=== PATIENT | female | born 1960 | race African-American/Black ===

== ENCOUNTER 2018-10-01 18:40 | Observation (INO) | payer OTHER ==
[~2018-10-01] VITALS: Ht 165.1 cm; Wt 83.0 kg
[2018-10-01] MEDS ORDERED: ONDANSETRON PF 4 MG/2 ML VIAL. IV ONE (19:30)
[2018-10-01] MEDS ORDERED: IV NORMAL SALINE 1000ML BAG 1,000 ML IV ONE (19:30)
[2018-10-01] MEDS ORDERED: fentaNYL PF VIAL 100 MCG/2 ML VIAL IV ONE (19:30)
[2018-10-01 19:55] LABS: BASO % 1 % (0-3); EOS # 0.3 x10^3/uL (0.0-0.7); EOS % 5 % (0-3); HEMATOCRIT 37.7 % (36.0-47.0); LYMPH # 1.2 x10^3/uL (1.0-4.8); LYMPH % 20 % (24-48); MEAN CORPUSCULAR HEMOGLOBIN 33 pg (25-35); MEAN CORPUSCULAR HGB CONC 34 g/dL (31-37); MEAN CORPUSCULAR VOLUME 96 fL (79-100); MONO # 0.4 x10^3/uL (0.0-1.1); MONO % 7 % (0-9); NEUT # 3.9 x10^3uL (1.8-7.7); NEUT % 67 % (31-73); PLATELET COUNT 262 x10^3/uL (140-400); RED BLOOD COUNT 3.95 x10^6/uL (3.50-5.40); RED CELL DISTRIBUTION WIDTH 15.2 % (11.5-14.5); WHITE BLOOD COUNT 5.7 x10^3/uL (4.0-11.0)
[2018-10-01] MEDS ORDERED: IOHEXOL 300 MG/ML 100ML VIAL. IV ONE (20:00)
[2018-10-01] MEDS ORDERED: CONTRAST GIVEN. MC PRN (20:00)
[2018-10-01 20:05] LABS: CALCIUM 9.4 mg/dL (8.5-10.1); CREATININE 1.1 mg/dL (0.6-1.0); GFR 61.7; POTASSIUM 4.5 mmol/L (3.5-5.1)
[2018-10-01 20:11] LABS: ALBUMIN 3.4 g/dL (3.4-5.0); ALBUMIN/GLOBULIN RATIO 0.5 (1.0-1.7); MAGNESIUM 2.1 mg/dL (1.8-2.4); TOTAL BILIRUBIN 0.3 mg/dL (0.2-1.0); TOTAL PROTEIN 10.7 g/dL (6.4-8.2)
--- NOTE | 2018-10-01 20:25 | PHYS DOC ---
Past Medical History Past Medical History: COPD, Hypertension, Other Additional Past Medical Histor: BLOOD TRANSFUSION Past Surgical History: Cholecystectomy, Other Additional Past Surgical Histo: HEMORRHOID,R ANKLE ORIF,REMOVAL HARDWARE Alcohol Use: None Drug Use: Marijuana Adult General Chief Complaint Chief Complaint: ABDOMINAL PAIN HPI HPI Patient is a 58 year old female presents the emergency room with a chief complaint of upper abdominal discomfort for the last 2-3 days. She does have a history of pancreatitis she is status post a cholecystectomy she says that she feels upper pain in her right upper quadrant area gets worse when she tries to each she's been throwing up the last couple of days as well she thought she was constipated but then she took a stool softener and she has had diarrhea the last couple of days as well she is feeling hot flashes no known fever she did have alcohol on [place] she says "a couple beers and a couple cocktails" she says she usually doesn't drink that much but since that time she has had this increasing symptoms. She says she is a "car falling apart" she says she feels like there is a gas bubble in her upper abdomen that gets worse when she tries to eat. She says that she feels the pain into the right side of her rib area she does have COPD she is on home oxygen that is unchanged she is mildly short of breath which is typical for her. She has normal any blood thinners she does have a history of high blood pressure as well. See nurse's note for complete med list. Review of Systems Review of Systems Constitutional: Eyes: Denies change in visual acuity, redness, or eye pain [] HENT: Denies nasal congestion or sore throat [] Respiratory: : Denies dysuria or hematuria [] Musculoskeletal: Integument: Denies rash or skin lesions [] Neurologic: Denies headache, focal weakness or sensory changes [] Endocrine: Denies polyuria or polydipsia [] All other systems were reviewed and found to be within normal limits, except as documented in this note. Current Medications Current Medications Current Medications Medications (Trade) Dose Ordered Sig/Carlos Alberto Start Time Stop Time Status Last Admin Dose Admin Fentanyl Citrate (Fentanyl 2ml Vial) 50 mcg 1X ONCE 10/01/18 19:30 10/01/18 19:32 DC 10/01/18 19:59 50 MCG Info (CONTRAST GIVEN -- Rx MONITORING) 1 each PRN DAILY PRN 10/01/18 20:00 10/03/18 19:59 Iohexol (Omnipaque 300 Mg/ml) 75 ml 1X ONCE 10/01/18 20:00 10/01/18 20:01 DC Morphine Sulfate (Morphine Sulfate) 4 mg 1X ONCE 10/01/18 22:15 10/01/18 22:16 Ondansetron HCl (Zofran) 4 mg 1X ONCE 10/01/18 19:30 10/01/18 19:32 DC 10/01/18 19:58 4 MG Sodium Chloride 1,000 ml @ 1,000 mls/hr 1X ONCE 10/01/18 19:30 10/01/18 20:29 DC 10/01/18 19:57 1,000 MLS/HR Allergies Allergies Allergies Coded Allergies Type Severity Reaction Last Updated Verified doxycycline Allergy Unknown 08/29/16 Yes Uncoded Allergies Type Severity Reaction Last Updated Verified UNKNOWN ANESTHETIC THAT THEY PUT YOU TO SLEEP WITH Allergy Unknown 08/29/16 Physical Exam Physical Exam Constitutional: Well developed, well nourished, no acute distress, non-toxic appearance. [] HENT: Normocephalic, atraumatic, bilateral external ears normal, oropharynx moist, no oral exudates, nose normal. [] Eyes: PERRLA, EOMI, conjunctiva normal, no discharge. [] Neck: Normal range of motion, no tenderness, supple, no stridor. [] Cardiovascular:Heart rate regular rhythm, no murmur [] Lungs & Thorax: Faint wheezing prolonged expiratory phase patient is in no distress at all Abdomen: Bowel sounds normal, soft, mild right upper quadrant and epigastric tenderness and also left midabdominal, no masses, no pulsatile masses. [] Skin: Warm, dry, no erythema, no rash. [] Back: No tenderness, right CVA tenderness. [] Extremities: No tenderness, no cyanosis, no clubbing, ROM intact, trace edema. [ ] Neurologic: Alert and oriented X 3, normal motor function, normal sensory function, no focal deficits noted. [] Psychologic: Affect normal, judgement normal, mood normal. [] Current Patient Data Vital Signs Vital Signs Date Time Temp Pulse Resp B/P (MAP) Pulse Ox O2 Delivery O2 Flow Rate FiO2 10/01/18 19:59 18 97 Nasal Cannula 3.0 10/01/18 18:40 98.0 85 182/112 (135) 98.0 Lab Values Laboratory Tests Test 10/01/18 19:45 10/01/18 20:20 White Blood Count 5.7 x10^3/uL (4.0-11.0) Red Blood Count 3.95 x10^6/uL (3.50-5.40) Hemoglobin 13.0 g/dL (12.0-15.5) Hematocrit 37.7 % (36.0-47.0) Mean Corpuscular Volume 96 fL (79-100) Mean Corpuscular Hemoglobin 33 pg (25-35) Mean Corpuscular Hemoglobin Concent 34 g/dL (31-37) Red Cell Distribution Width 15.2 % (11.5-14.5) H Platelet Count 262 x10^3/uL (140-400) Neutrophils (%) (Auto) 67 % (31-73) Lymphocytes (%) (Auto) 20 % (24-48) L Monocytes (%) (Auto) 7 % (0-9) Eosinophils (%) (Auto) 5 % (0-3) H Basophils (%) (Auto) 1 % (0-3) Neutrophils # (Auto) 3.9 x10^3uL (1.8-7.7) Lymphocytes # (Auto) 1.2 x10^3/uL (1.0-4.8) Monocytes # (Auto) 0.4 x10^3/uL (0.0-1.1) Eosinophils # (Auto) 0.3 x10^3/uL (0.0-0.7) Basophils # (Auto) 0.0 x10^3/uL (0.0-0.2) Sodium Level 131 mmol/L (136-145) L Potassium Level 4.5 mmol/L (3.5-5.1) Chloride Level 100 mmol/L (98-107) Carbon Dioxide Level 22 mmol/L (21-32) Anion Gap 9 (6-14) Blood Urea Nitrogen 13 mg/dL (7-20) Creatinine 1.1 mg/dL (0.6-1.0) H Estimated GFR (Cockcroft-Gault) 61.7 BUN/Creatinine Ratio 12 (6-20) Glucose Level 109 mg/dL (70-99) H Calcium Level 9.4 mg/dL (8.5-10.1) Magnesium Level 2.1 mg/dL (1.8-2.4) Total Bilirubin 0.3 mg/dL (0.2-1.0) Aspartate Amino Transferase (AST) 27 U/L (15-37) Alanine Aminotransferase (ALT) 21 U/L (14-59) Alkaline Phosphatase 124 U/L (46-116) H Troponin I Quantitative < 0.017 ng/mL (0.000-0.055) Total Protein 10.7 g/dL (6.4-8.2) H Albumin 3.4 g/dL (3.4-5.0) Albumin/Globulin Ratio 0.5 (1.0-1.7) L Lipase 301 U/L (73-393) Prothrombin Time 13.3 SEC (11.7-14.0) Prothrombin Time INR 1.0 (0.8-1.1) Laboratory Tests 10/01/18 19:45 Laboratory Tests 10/01/18 19:45 EKG EKG []EKG shows a normal sinus rhythm rate of 74 no acute ischemic changes noted interpreted by me the time of encounter intervals are normal no STEMI Radiology/Procedures Radiology/Procedures []formal read suggests pna Impressions: Chest x-ray interpreted by me showed no definite pneumonia how there are there is some sort of patchy bibasilar opacity could be atelectasis versus early consolidation. 1. No hydronephrosis. 2. Prominent appearance of the wall the sigmoid colon. Could be secondary to a region of contraction but would correlate with symptoms in the area to ensure that this is not from a pathologic cause such as mild diverticulitis. Also cannot exclude a region of narrowing or lesion in the area on this noncontrast exam given that the colon is not very distended in this region. 3. Questionable mild indistinctness of the fat adjacent to the pancreas. This is a questionable finding but would correlate with symptoms and lab markers to ensure that there is not a pathologic cause such as mild pancreatitis. 4. Cystic changes at lung bases which can be seen with chronic lung disease. There is also a focal opacity at the right lung base. Given the location the most likely causes atelectasis unless there is high clinical concern for infiltrate Electronically signed by: Eligio Shah MD (10/01/2018 9:04 PM) [facility] Course & Med Decision Making Course & Med Decision Making Pertinent Labs and Imaging studies reviewed. (See chart for details) []History of COPD on home oxygen hypertension prior pancreatitis prior cholecystectomy presented with upper abdominal pain for the last 3 days after drinking alcohol over [place]. There is definite postprandial component she may have gastritis also be possible her lipase is only 303 but if she has chronic pancreatitis and perhaps she is having some symptoms referrable to that. Chest x-ray suggestive of probably atelectasis but given her history of COPD we may give her some antibiotics. CT abdomen and pelvis POSSIBLE pancreatitis or diverticulitis. i advised pt on importance of colonoscopy in 3 months once better. LFTs are normal the blood sugar is unremarkable patient is feeling better in the ER with the above treatment. pt given levaquin and flagyl in er, hydration pain control d/w samuel for admit at [address] Disclaimer Dragon Disclaimer This electronic medical record was generated, in whole or in part, using a voice recognition dictation system. Departure Departure Impression: Primary Impression: Abdominal pain Additional Impressions: Pneumonia Pancreatitis Disposition: ADMITTED INPATIENT Admitting Physician: Sandra Finch Condition: STABLE Referrals: CORRINA WOOD MD (PCP) Problem Qualifiers VASQUEZ GREY MD Oct 01, 2018 20:25
--- NOTE | 2018-10-01 20:26 | RAD ---
EXAM: Chest, single view. HISTORY: Chest pain. COMPARISON: None. FINDINGS: A frontal view of the chest is obtained. There is mild diffuse increased additional opacity. There is no consolidation, pleural effusion or pneumothorax. There is a prominent cardiac silhouette, a component of which is due to portable technique. IMPRESSION: 1. Diffuse increased interstitial opacity likely due to interstitial infiltrate. This may be superimposed on chronic interstitial changes. 2. Prominent cardiac silhouette. Electronically signed by: Lexii Steiner MD (10/01/2018 8:22 PM) [facility]
--- NOTE | 2018-10-01 21:08 | RAD ---
INDICATION: ABD PAIN NO CONTRAST POOR IV SITE NO PREV COMPARISON: None. TECHNIQUE: Axial CT images obtained through the abdomen and pelvis without contrast. Limited assessment of solid organ structures and vasculature secondary to lack of intravenous contrast.. One or more of the following individualized dose reduction techniques were utilized for this examination: 1. Automated exposure control; 2. Adjustment of the mA and/or kV according to patient size; 3. Use of iterative reconstruction technique. FINDINGS: There is some apparent cystic changes at lung bases. Mild patchy opacity right lung base dependently. Moderate calcific atherosclerosis. No intrahepatic bile duct dilation. No definite peripancreatic fluid collection. Questionable mild haziness of fat adjacent to uncinate process and head of pancreas. Spleen unremarkable. No left-sided hydronephrosis. Urinary bladder is largely decompressed. No right-sided hydronephrosis. There is a 2 mm calcification in the right hemipelvis but this appears to be adjacent to the ureter rather than within it. Colonic diverticulosis. Wall of the sigmoid colon is prominent in thickness. Portion of left-sided colon also appears mildly prominent in thickness but not very distended. Degenerative changes throughout the spine with multilevel central canal and neural foraminal stenosis. IMPRESSION: 1. No hydronephrosis. 2. Prominent appearance of the wall the sigmoid colon. Could be secondary to a region of contraction but would correlate with symptoms in the area to ensure that this is not from a pathologic cause such as mild diverticulitis. Also cannot exclude a region of narrowing or lesion in the area on this noncontrast exam given that the colon is not very distended in this region. 3. Questionable mild indistinctness of the fat adjacent to the pancreas. This is a questionable finding but would correlate with symptoms and lab markers to ensure that there is not a pathologic cause such as mild pancreatitis. 4. Cystic changes at lung bases which can be seen with chronic lung disease. There is also a focal opacity at the right lung base. Given the location the most likely causes atelectasis unless there is high clinical concern for infiltrate Electronically signed by: Eligio Shah MD (10/01/2018 9:04 PM) [facility]
[2018-10-01 21:12] LABS: PROTHROMBIN TIME PATIENT 13.3 SEC (11.7-14.0)
[2018-10-01] MEDS ORDERED: MORPHINE SULFATE 4 MG/ML VIAL. ONE (22:03)
[2018-10-01] MEDS ORDERED: IV NORMAL SALINE 1000ML BAG 1,000 ML IV SCH (22:15)
[2018-10-01] MEDS ORDERED: PROCHLORPERAZINE 10 MG/2 ML VIAL. IV PRN (22:15)
[2018-10-01] MEDS ORDERED: MORPHINE SULFATE 4 MG/ML VIAL. IV ONE (22:15)
[2018-10-01] MEDS ORDERED: levOFLOXacin PER PHARMACY. MC PRN (22:30)
[2018-10-01 23:47] VITALS: BP 174/118
--- NOTE | 2018-10-02 | NUR ---
Pt arrived to unit by jt from ED, ambulated to the bathroom by herself. A&Ox4, on 2L nc, c/o abd pain that radiates to back 07/14. Belongings at bedside. Hospital policies reviewed. Side rails up x2, call light within reach, will continue to monitor.
[2018-10-02] MEDS: MORPHINE SULFATE 4 MG/ML VIAL. IV PRN ×5 (00:05→09:13)
[2018-10-02] MEDS ORDERED: LABETALOL 20 MG/4 ML DISP.SYRIN. IVP PRN (00:45)
[2018-10-02] MEDS ORDERED: ZOLPIDEM 5 MG TABLET. PO PRN ×2 (00:45→02:15)
[2018-10-02] MEDS ORDERED: NICOTINE 21MG PATCH. TD PRN (00:45)
[2018-10-02] MEDS ORDERED: NICOTINE POLACRILEX 2MG GUM PACKAGE of 12. BC PRN (01:30)
[2018-10-02] MEDS ORDERED: ALBUTEROL SULFATE 2.5 MG/3 ML NEBU. INH PRN (01:30)
[2018-10-02] MEDS ORDERED: SENNOSIDES 8.6 MG TABLET PO PRN (01:30)
[2018-10-02] MEDS ORDERED: PANT20TA2 PO (01:43)
[2018-10-02] MEDS ORDERED: ESTR0.62 PO (01:43)
[2018-10-02] MEDS ORDERED: NICO2GUM5 BC (01:43)
[2018-10-02] MEDS ORDERED: THIA100T22 PO (01:43)
[2018-10-02] MEDS ORDERED: FLUO20CA8 PO (01:43)
[2018-10-02] MEDS ORDERED: GABA300C18 PO (01:43)
[2018-10-02] MEDS ORDERED: ALBU2.5V8 INH (01:43)
[2018-10-02] MEDS ORDERED: TIOT4MIS3 IH (01:43)
[2018-10-02] MEDS ORDERED: OMEP40CA5 PO (01:43)
[2018-10-02] MEDS ORDERED: ASPI-630 PO (01:43)
[2018-10-02] MEDS ORDERED: FOLI1TAB16 PO (01:43)
[2018-10-02] MEDS ORDERED: ZOLP10TA4 PO (01:43)
[2018-10-02] MEDS ORDERED: FERR325T14 PO (01:43)
[2018-10-02] MEDS ORDERED: FLUT16SP NS (01:43)
[2018-10-02] MEDS ORDERED: SENN8.6T4 PO (01:43)
[2018-10-02] MEDS ORDERED: METO25TA4 PO (01:43)
[2018-10-02] MEDS ORDERED: LIPA1CAP2 PO (01:43)
[2018-10-02] MEDS ORDERED: NICO1PAT21 TP (01:43)
[2018-10-02] MEDS ORDERED: lidoderm TOP (01:43)
[2018-10-02 03:02] VITALS: BP 143/88
--- NOTE | 2018-10-02 05:54 | NUR ---
Danilo inhaler sent to pharmacy for labeling, pt's own home med. Left in med room to be used at later time today.
[2018-10-02 07:00] VITALS: BP 92/65
[2018-10-02] MEDS ORDERED: PANTOPRAZOLE 40 MG TABLET.DR. PO SCH (07:30)
[2018-10-02] MEDS ORDERED: ASPIRIN CHEWABLE 81 MG TABLET. PO SCH (08:00)
[2018-10-02] MEDS ORDERED: [UNRECOGNIZED DRUG - OTHER] IH SCH (09:00)
[2018-10-02] MEDS ORDERED: FERROUS SULFATE 325 MG TABLET. PO SCH (09:00)
[2018-10-02] MEDS ORDERED: TIOTROPIUM BR IH SCH (09:00)
[2018-10-02] MEDS ORDERED: NON FORMULARY ITEM (Omeprazole 1 CAP) PO SCH (09:00)
[2018-10-02] MEDS ORDERED: NICOTINE TP SCH (09:00)
[2018-10-02] MEDS ORDERED: OLODATEROL HCL IH SCH (09:00)
[2018-10-02] MEDS ORDERED: FOLIC ACID 1 MG TABLET. PO SCH (09:00)
[2018-10-02] MEDS ORDERED: LIDOCAINE (700MG/PATCH) PATCH. TD SCH (09:00)
[2018-10-02] MEDS ORDERED: FLUTICASONE 50MCG/NASAL SPRAY 16GM BOTTLE. NS SCH (09:00)
[2018-10-02] MEDS ORDERED: THIAMINE 100 MG TABLET. PO SCH (09:00)
[2018-10-02] MEDS ORDERED: LIDODERM 5% TOP SCH (09:00)
[2018-10-02] MEDS ORDERED: METOPROLOL TART IMMED RELEASE 25 MG TABLET. PO SCH (09:00)
[2018-10-02] MEDS ORDERED: FLUoxetine HCL 20 MG CAPSULE PO SCH (09:00)
[2018-10-02] MEDS ORDERED: ESTROGENS, CONJUGATED 0.625 MG TABLET PO SCH (09:00)
[2018-10-02] MEDS ORDERED: GABAPENTIN 300 MG CAPSULE. PO SCH (09:00)
--- NOTE | 2018-10-02 09:21 | EKG ---
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
[2018-10-02] MEDS ORDERED: OXYC1TAB22 PO (10:29)
--- NOTE | 2018-10-02 10:33 | PDOC1 ---
History and Physical Date of Admission Date of Admission DATE: 10/02/18 TIME: 10:29 Identification/Chief Complaint Chief Complaint multiple complaints, mostly abdominal pain Source Source: Caregiver, Chart review, Patient History of Present Illness History of Present Illness 58 yo obese female with a BMI 31, admitted because of abdominal pain. She has multiple complaints but her strong CC was mostly abdominal pain. NO emesis, no recent travel or sick contact, no change in BM, She is tolerating a diet and CAT scan failed to reveal any acute pathology. CAT scan below: There is some apparent cystic changes at lung bases. Mild patchy opacity right lung base dependently. Moderate calcific atherosclerosis. No intrahepatic bile duct dilation. No definite peripancreatic fluid collection. Questionable mild haziness of fat adjacent to uncinate process and head of pancreas. Spleen unremarkable. No left-sided hydronephrosis. Urinary bladder is largely decompressed. No right-sided hydronephrosis. There is a 2 mm calcification in the right hemipelvis but this appears to be adjacent to the ureter rather than within it. Colonic diverticulosis. Wall of the sigmoid colon is prominent in thickness. Portion of left-sided colon also appears mildly prominent in thickness but not very distended. Degenerative changes throughout the spine with multilevel central canal and neural foraminal stenosis. I am dcding with just pain meds and no need for abx,. She requested 10mgs of hydrocodones Past Medical History Heme/Onc: Anemia NOS Psych: Addictions, Depression Past Surgical History Past Surgical History: No pertinent history Family History Family History: No Significant Social History Smoke: No ALCOHOL: none Drugs: None Current Problem List Problem List Problems Medical Problems: (1) Abdominal pain Status: Acute (2) Pancreatitis Status: Acute (3) Pneumonia Status: Acute Current Medications Current Medications Current Medications Sodium Chloride 1,000 ml @ 1,000 mls/hr 1X ONCE IV Last administered on 10/01at 19:57; Start 10/01/18 at 19:30; Stop 10/01/18 at 20:29; Status DC Fentanyl Citrate (Fentanyl 2ml Vial) 50 mcg 1X ONCE IV Last administered on at 19:59; Start 10/01/18 at 19:30; Stop 10/01/18 at 19:32; Status DC Ondansetron HCl (Zofran) 4 mg 1X ONCE IV Last administered on 10/01/18at 19:58 ; Start 10/01/18 at 19:30; Stop 10/01/18 at 19:32; Status DC Iohexol (Omnipaque 300 Mg/ml) 75 ml 1X ONCE IV ; Start 10/01/18 at 20:00; Stop 10/01/18 at 20:01; Status DC Info (CONTRAST GIVEN -- Rx MONITORING) 1 each PRN DAILY PRN MC SEE COMMENTS; Start 10/01/18 at 20:00; Stop 10/03/18 at 19:59 Morphine Sulfate (Morphine Sulfate) 4 mg STK-MED ONCE .ROUTE ; Start 10/01/18 at 22:03; Stop 10/01/18 at 22:04; Status DC Morphine Sulfate (Morphine Sulfate) 4 mg 1X ONCE IV Last administered on 10/01at 22:15; Start 10/01/18 at 22:15; Stop 10/01/18 at 22:16; Status DC Morphine Sulfate (Morphine Sulfate) 4 mg PRN Q2HR PRN IV PAIN Last administered on 10/02/18at 09:13; Start 10/01/18 at 22:15; Stop 10/02/18 at 22 :14 Sodium Chloride 1,000 ml @ 75 mls/hr [id number] IV Last administered on at 01:51; Start 10/01/18 at 22:15; Stop 10/02/18 at 22:14 Levofloxacin/ Dextrose (Levaquin Per Pharmacy) 1 each PRN DAILY PRN MC SEE COMMENTS; Start 10/01/18 at 22:30 Prochlorperazine Edisylate (Compazine) 10 mg PRN Q6HRS PRN IV VOMITING; Start 10/01/18 at 22:15 Metronidazole 100 ml @ 100 mls/hr Q12HR IV Last administered on 10/02/18at 09: 12; Start 10/01/18 at 23:30 Levofloxacin/ Dextrose 100 ml @ 100 mls/hr Q24H IV Last administered on at 01:50; Start 10/01/18 at 22:30 Labetalol HCl (Normodyne Iv Push) 10 mg PRN Q2HR PRN IVP HYPERTENSION, SEE COMMENTS Last administered on 10/02/18at 00:53; Start 10/02/18 at 00:45 Nicotine (Nicoderm Cq 21mg) 1 patch PRN DAILY PRN TD SMOKING CESSATION Last administered on 10/02/18 00:48; Start 10/02/18 at 00:45 Zolpidem Tartrate (Ambien) 10 mg PRN QHS PRN PO INSOMNIA, MAY REPEAT IN 1HR Last administered on 10/02/18at 00:48; Start 10/02/18 at 00:45; Stop 10/02/18 at 02:11; Status DC Albuterol Sulfate (Ventolin Neb Soln) 2.5 mg PRN Q6HRS PRN INH SHORTNESS OF BREATH; Start 10/02/18 at 01:30 Aspirin (Children'S Aspirin) 81 mg DAILYWBKFT PO Last administered on 09:10; Start 10/02/18 at 08:00 Estrogens Conjugated (Premarin) 0.625 mg DAILY PO ; Start 10/02/18 at 09:00 Ferrous Sulfate (Feosol) 325 mg BIDAFTMEAL PO Last administered on 10/02/18 09:10; Start 10/02/18 at 09:00 Fluoxetine HCl (PROzac) 20 mg DAILY PO Last administered on 10/02/18 09:10; Start 10/02/18 at 09:00 Fluticasone Propionate (Flonase) 2 spray DAILY NS Last administered on 09:11; Start 10/02/18 at 09:00 Folic Acid (Folic Acid) 1 mg DAILY PO Last administered on 10/02/18at 09:10; Start 10/02/18 at 09:00 Gabapentin (Neurontin) 300 mg TID PO Last administered on 10/02/18 09:10; Start 10/02/18 at 09:00 Metoprolol Tartrate (Lopressor) 25 mg BID PO Last administered on 10/02/18 09 :11; Start 10/02/18 at 09:00 Amylase/Lipase/ Protease (Zenpep 5,000) 2 cap TIDWMEALS PO Last administered on 10/02/18 09:10; Start 10/02/18 at 08:00 Non-Formulary Medication (Nicotine (NICODERM CQ 21mg)) 1 patch DAILY TP ; Start 10/02/18 at 09:00; Status UNV Nicotine Polacrilex (Nicorette Gum) 2 each PRN Q1HR PRN BC SMOKING CESSATION; Start 10/02/18 at 01:30 Non-Formulary Medication (Omeprazole ) 1 cap DAILY PO ; Start 10/02/18 at 09:00 ; Status UNV Pantoprazole Sodium (Protonix) 40 mg DAILYAC PO Last administered on at 06:11; Start 10/02/18 at 07:30 Sennosides (Senna) 8.6 mg PRN DAILY PRN PO CONSTIPATION; Start 10/02/18 at 01: 30 Thiamine Mononitrate (Vitamin B-1) 100 mg DAILY PO Last administered on at 09:10; Start 10/02/18 at 09:00 Non-Formulary Medication (Tiotropium Br/ Olodaterol HCl (Stiolto Respimat Inhal [place])) 2.5 mcg DAILY IH Last administered on 10/02/18at 09:11; Start at 09:00 Non-Formulary Medication (Zolpidem Tartrate ) 1 tab QHS PO ; Start 10/02/18 at 21:00; Status UNV Non-Formulary Medication ([lidoderm] ) 5 % DAILY TOP ; Start 10/02/18 at 09:00 ; Status UNV Zolpidem Tartrate (Ambien) 5 mg PRN QHS PRN PO INSOMNIA, MAY REPEAT IN 1HR; Start 10/02/18 at 02:15 Lidocaine (Lidoderm) 1 patch DAILY TD Last administered on 10/02/18at 09:12; Start 10/02/18 at 09:00 Miscellaneous (Lidoderm Patch Removal) 1 ea QHS MC ; Start 10/02/18 at 21:00 Lactobacillus Rhamnosus (Culturelle) 1 cap BID PO ; Start 10/02/18 at 21:00 Active Scripts Active Percocet 10-325 Mg Tablet (Oxycodone/Acetaminophen) 1 Each Tablet 1 Tab PO PRN Q6HRS PRN Reported Zolpidem Tartrate 10 Mg Tablet 1 Tab PO QHS Vitamin B-1 (Thiamine Mononitrate) 100 Mg Tablet 100 Mg PO DAILY Stiolto Respimat Inhal [place] (Tiotropium Br/Olodaterol HCl) 4 Gm Mist.inhal 2.5 Mcg IH DAILY Senexon (Sennosides) 8.6 Mg Tablet 8.6 Mg PO DAILY PRN Proair Hfa Inhaler (Albuterol Sulfate) 8.5 Gm Hfa.aer.ad 2 Puff INH PRN Q6HRS PRN Protonix (Pantoprazole Sodium) 20 Mg Tablet.dr 40 Mg PO DAILY Creon Dr 6,000 Units Capsule (Lipase/Protease/Amylase) 1 Each Capsule.dr 2 Each PO TIDWMEALS Omeprazole 40 Mg Capsule.dr 1 Cap PO DAILY Nicorette (Nicotine Polacrilex) 2 Mg Gum 2 Mg BC Q1HR PRN NICODERM CQ 21mg (Nicotine) 1 Each Patch.td24 1 Patch TP DAILY Metoprolol Tartrate 25 Mg Tablet 1 Tab PO BID [lidoderm] 5 % TOP DAILY Gabapentin (Gabapentin) 300 Mg Capsule 300 Mg PO TID Folic Acid 1 Mg Tablet 1 Tab PO DAILY Fluticasone Propionate Nasal [place] (Fluticasone Propionate) 16 Gm Ray.susp 2 Ray NS DAILY Fluoxetine Hcl 20 Mg Capsule 1 Cap PO DAILY Ferrous Sulfate 325 Mg Tablet 1 Tab PO BID Premarin (Estrogens, Conjugated) 0.625 Mg Tablet 1 Tab PO DAILY Aspirin 81 Mg Tab.chew 1 Tab PO DAILY Allergies Allergies: Coded Allergies: doxycycline (Verified Allergy, Unknown, 08/29/16) Uncoded Allergies: UNKNOWN ANESTHETIC THAT THEY PUT YOU TO SLEEP WITH (Allergy, Unknown, 08/29) ROS Review of System As per history of present illness, the rest of ROS 14 point negative Physical Exam General: Alert, Oriented X3, Cooperative, No acute distress HEENT: Atraumatic, PERRLA, EOMI Lungs: Clear to auscultation, Normal air movement Heart: S1S2, RRR, no thrills, no rubs, no gallops, no murmurs Cardiovascular: S1, S2 Breasts: Normal, Rt breast nml w/o mass, Lt breast nml w/o mass, Nipples normal Abdomen: Normal bowel sounds, Soft, No tenderness, No hepatosplenomegaly, No masses Rectal Exam: not examined PELVIC: Nml ext genitalia Extremities: No clubbing, No cyanosis, No edema, Normal pulses, No tenderness/ swelling Skin: No rashes, No breakdown, No significant lesion Neuro: Normal gait, Normal speech, Strength at 5/5 X4 ext, Normal tone, Sensation intact, Cranial nerves 3-12 NL, Reflexes 2+ Psych/Mental Status: Mental status NL, Mood NL Vitals Vitals Vital Signs Date Time Temp Pulse Resp B/P (MAP) Pulse Ox O2 Delivery O2 Flow Rate FiO2 10/02/18 09:13 20 92 Nasal Cannula 2.0 10/02/18 09:11 95 143/88 10/02/18 07:00 97.8 97.8 Labs Labs Laboratory Tests Test 10/01/18 19:45 10/01/18 20:20 10/02/18 00:02 White Blood Count 5.7 x10^3/uL (4.0-11.0) Red Blood Count 3.95 x10^6/uL (3.50-5.40) Hemoglobin 13.0 g/dL (12.0-15.5) Hematocrit 37.7 % (36.0-47.0) Mean Corpuscular Volume 96 fL (79-100) Mean Corpuscular Hemoglobin 33 pg (25-35) Mean Corpuscular Hemoglobin Concent 34 g/dL (31-37) Red Cell Distribution Width 15.2 % (11.5-14.5) Platelet Count 262 x10^3/uL (140-400) Neutrophils (%) (Auto) 67 % (31-73) Lymphocytes (%) (Auto) 20 % (24-48) Monocytes (%) (Auto) 7 % (0-9) Eosinophils (%) (Auto) 5 % (0-3) Basophils (%) (Auto) 1 % (0-3) Neutrophils # (Auto) 3.9 x10^3uL (1.8-7.7) Lymphocytes # (Auto) 1.2 x10^3/uL (1.0-4.8) Monocytes # (Auto) 0.4 x10^3/uL (0.0-1.1) Eosinophils # (Auto) 0.3 x10^3/uL (0.0-0.7) Basophils # (Auto) 0.0 x10^3/uL (0.0-0.2) Sodium Level 131 mmol/L (136-145) Potassium Level 4.5 mmol/L (3.5-5.1) Chloride Level 100 mmol/L (98-107) Carbon Dioxide Level 22 mmol/L (21-32) Anion Gap 9 (6-14) Blood Urea Nitrogen 13 mg/dL (7-20) Creatinine 1.1 mg/dL (0.6-1.0) Estimated GFR (Cockcroft-Gault) 61.7 BUN/Creatinine Ratio 12 (6-20) Glucose Level 109 mg/dL (70-99) Calcium Level 9.4 mg/dL (8.5-10.1) Magnesium Level 2.1 mg/dL (1.8-2.4) Total Bilirubin 0.3 mg/dL (0.2-1.0) Aspartate Amino Transf (AST/SGOT) 27 U/L (15-37) Alanine Aminotransferase (ALT/SGPT) 21 U/L (14-59) Alkaline Phosphatase 124 U/L (46-116) Troponin I Quantitative < 0.017 ng/mL (0.000-0.055) Total Protein 10.7 g/dL (6.4-8.2) Albumin 3.4 g/dL (3.4-5.0) Albumin/Globulin Ratio 0.5 (1.0-1.7) Lipase 301 U/L (73-393) Prothrombin Time 13.3 SEC (11.7-14.0) Prothromb Time International Ratio 1.0 (0.8-1.1) Lactic Acid Level 1.0 mmol/L (0.4-2.0) Laboratory Tests Test 10/01/18 19:45 10/01/18 20:20 10/02/18 00:02 White Blood Count 5.7 x10^3/uL (4.0-11.0) Red Blood Count 3.95 x10^6/uL (3.50-5.40) Hemoglobin 13.0 g/dL (12.0-15.5) Hematocrit 37.7 % (36.0-47.0) Mean Corpuscular Volume 96 fL (79-100) Mean Corpuscular Hemoglobin 33 pg (25-35) Mean Corpuscular Hemoglobin Concent 34 g/dL (31-37) Red Cell Distribution Width 15.2 % (11.5-14.5) Platelet Count 262 x10^3/uL (140-400) Neutrophils (%) (Auto) 67 % (31-73) Lymphocytes (%) (Auto) 20 % (24-48) Monocytes (%) (Auto) 7 % (0-9) Eosinophils (%) (Auto) 5 % (0-3) Basophils (%) (Auto) 1 % (0-3) Neutrophils # (Auto) 3.9 x10^3uL (1.8-7.7) Lymphocytes # (Auto) 1.2 x10^3/uL (1.0-4.8) Monocytes # (Auto) 0.4 x10^3/uL (0.0-1.1) Eosinophils # (Auto) 0.3 x10^3/uL (0.0-0.7) Basophils # (Auto) 0.0 x10^3/uL (0.0-0.2) Sodium Level 131 mmol/L (136-145) Potassium Level 4.5 mmol/L (3.5-5.1) Chloride Level 100 mmol/L (98-107) Carbon Dioxide Level 22 mmol/L (21-32) Anion Gap 9 (6-14) Blood Urea Nitrogen 13 mg/dL (7-20) Creatinine 1.1 mg/dL (0.6-1.0) Estimated GFR (Cockcroft-Gault) 61.7 BUN/Creatinine Ratio 12 (6-20) Glucose Level 109 mg/dL (70-99) Calcium Level 9.4 mg/dL (8.5-10.1) Magnesium Level 2.1 mg/dL (1.8-2.4) Total Bilirubin 0.3 mg/dL (0.2-1.0) Aspartate Amino Transf (AST/SGOT) 27 U/L (15-37) Alanine Aminotransferase (ALT/SGPT) 21 U/L (14-59) Alkaline Phosphatase 124 U/L (46-116) Troponin I Quantitative < 0.017 ng/mL (0.000-0.055) Total Protein 10.7 g/dL (6.4-8.2) Albumin 3.4 g/dL (3.4-5.0) Albumin/Globulin Ratio 0.5 (1.0-1.7) Lipase 301 U/L (73-393) Prothrombin Time 13.3 SEC (11.7-14.0) Prothromb Time International Ratio 1.0 (0.8-1.1) Lactic Acid Level 1.0 mmol/L (0.4-2.0) VTE Prophylaxis Ordered VTE Prophylaxis Devices: Yes VTE Pharmacological Prophylaxi: Yes Assessment/Plan Assessment/Plan Abdominal pain with unrevealing CT and reassuring physical exam-tolerating diet, Narcotic dependence/tolerance Obesity BMI 31-could benefit if she loses weight Depression NOS, addictions NOS Plan: Regular diet for lunch then home later. Percocet 10 on chart Patient seen and examined, discussed with JIM SUMMERS MD Oct 02, 2018 10:33
--- NOTE | 2018-10-02 10:34 | PDOC3 ---
Discharge Summary Visit Information Date of Admission: Oct 01, 2018 Date of Discharge: Oct 02, 2018 Admitting Diagnosis Comment: Abdominal pain with unrevealing CT and reassuring physical exam-tolerating diet, Narcotic dependence/tolerance Obesity BMI 31-could benefit if she loses weight Depression NOS, addictions NOS Plan: Regular diet for lunch then home later. Percocet 10 on chart Patient seen and examined, discussed with RN Final Diagnosis Problems Medical Problems: (1) Abdominal pain Status: Acute (2) Pancreatitis Status: Acute (3) Pneumonia Status: Acute Brief Hospital Course Allergies Allergies Coded Allergies Type Severity Reaction Last Updated Verified doxycycline Allergy Unknown 08/29/16 Yes Uncoded Allergies Type Severity Reaction Last Updated Verified UNKNOWN ANESTHETIC THAT THEY PUT YOU TO SLEEP WITH Allergy Unknown 08/29/16 Vital Signs Vital Signs Date Time Temp Pulse Resp B/P (MAP) Pulse Ox O2 Delivery O2 Flow Rate FiO2 10/02/18 09:13 20 92 Nasal Cannula 2.0 10/02/18 09:11 95 143/88 10/02/18 07:00 97.8 97.8 Lab Results Laboratory Tests Test 10/01/18 19:45 10/01/18 20:20 10/02/18 00:02 White Blood Count 5.7 x10^3/uL (4.0-11.0) Red Blood Count 3.95 x10^6/uL (3.50-5.40) Hemoglobin 13.0 g/dL (12.0-15.5) Hematocrit 37.7 % (36.0-47.0) Mean Corpuscular Volume 96 fL (79-100) Mean Corpuscular Hemoglobin 33 pg (25-35) Mean Corpuscular Hemoglobin Concent 34 g/dL (31-37) Red Cell Distribution Width 15.2 % (11.5-14.5) Platelet Count 262 x10^3/uL (140-400) Neutrophils (%) (Auto) 67 % (31-73) Lymphocytes (%) (Auto) 20 % (24-48) Monocytes (%) (Auto) 7 % (0-9) Eosinophils (%) (Auto) 5 % (0-3) Basophils (%) (Auto) 1 % (0-3) Neutrophils # (Auto) 3.9 x10^3uL (1.8-7.7) Lymphocytes # (Auto) 1.2 x10^3/uL (1.0-4.8) Monocytes # (Auto) 0.4 x10^3/uL (0.0-1.1) Eosinophils # (Auto) 0.3 x10^3/uL (0.0-0.7) Basophils # (Auto) 0.0 x10^3/uL (0.0-0.2) Sodium Level 131 mmol/L (136-145) Potassium Level 4.5 mmol/L (3.5-5.1) Chloride Level 100 mmol/L (98-107) Carbon Dioxide Level 22 mmol/L (21-32) Anion Gap 9 (6-14) Blood Urea Nitrogen 13 mg/dL (7-20) Creatinine 1.1 mg/dL (0.6-1.0) Estimated GFR (Cockcroft-Gault) 61.7 BUN/Creatinine Ratio 12 (6-20) Glucose Level 109 mg/dL (70-99) Calcium Level 9.4 mg/dL (8.5-10.1) Magnesium Level 2.1 mg/dL (1.8-2.4) Total Bilirubin 0.3 mg/dL (0.2-1.0) Aspartate Amino Transf (AST/SGOT) 27 U/L (15-37) Alanine Aminotransferase (ALT/SGPT) 21 U/L (14-59) Alkaline Phosphatase 124 U/L (46-116) Troponin I Quantitative < 0.017 ng/mL (0.000-0.055) Total Protein 10.7 g/dL (6.4-8.2) Albumin 3.4 g/dL (3.4-5.0) Albumin/Globulin Ratio 0.5 (1.0-1.7) Lipase 301 U/L (73-393) Prothrombin Time 13.3 SEC (11.7-14.0) Prothromb Time International Ratio 1.0 (0.8-1.1) Lactic Acid Level 1.0 mmol/L (0.4-2.0) Laboratory Tests Test 10/01/18 19:45 10/01/18 20:20 10/02/18 00:02 White Blood Count 5.7 x10^3/uL (4.0-11.0) Red Blood Count 3.95 x10^6/uL (3.50-5.40) Hemoglobin 13.0 g/dL (12.0-15.5) Hematocrit 37.7 % (36.0-47.0) Mean Corpuscular Volume 96 fL (79-100) Mean Corpuscular Hemoglobin 33 pg (25-35) Mean Corpuscular Hemoglobin Concent 34 g/dL (31-37) Red Cell Distribution Width 15.2 % (11.5-14.5) Platelet Count 262 x10^3/uL (140-400) Neutrophils (%) (Auto) 67 % (31-73) Lymphocytes (%) (Auto) 20 % (24-48) Monocytes (%) (Auto) 7 % (0-9) Eosinophils (%) (Auto) 5 % (0-3) Basophils (%) (Auto) 1 % (0-3) Neutrophils # (Auto) 3.9 x10^3uL (1.8-7.7) Lymphocytes # (Auto) 1.2 x10^3/uL (1.0-4.8) Monocytes # (Auto) 0.4 x10^3/uL (0.0-1.1) Eosinophils # (Auto) 0.3 x10^3/uL (0.0-0.7) Basophils # (Auto) 0.0 x10^3/uL (0.0-0.2) Sodium Level 131 mmol/L (136-145) Potassium Level 4.5 mmol/L (3.5-5.1) Chloride Level 100 mmol/L (98-107) Carbon Dioxide Level 22 mmol/L (21-32) Anion Gap 9 (6-14) Blood Urea Nitrogen 13 mg/dL (7-20) Creatinine 1.1 mg/dL (0.6-1.0) Estimated GFR (Cockcroft-Gault) 61.7 BUN/Creatinine Ratio 12 (6-20) Glucose Level 109 mg/dL (70-99) Calcium Level 9.4 mg/dL (8.5-10.1) Magnesium Level 2.1 mg/dL (1.8-2.4) Total Bilirubin 0.3 mg/dL (0.2-1.0) Aspartate Amino Transf (AST/SGOT) 27 U/L (15-37) Alanine Aminotransferase (ALT/SGPT) 21 U/L (14-59) Alkaline Phosphatase 124 U/L (46-116) Troponin I Quantitative < 0.017 ng/mL (0.000-0.055) Total Protein 10.7 g/dL (6.4-8.2) Albumin 3.4 g/dL (3.4-5.0) Albumin/Globulin Ratio 0.5 (1.0-1.7) Lipase 301 U/L (73-393) Prothrombin Time 13.3 SEC (11.7-14.0) Prothromb Time International Ratio 1.0 (0.8-1.1) Lactic Acid Level 1.0 mmol/L (0.4-2.0) Brief Hospital Course Ms. Monaco is a 58 old [sex] who presented with [ ] 58 yo obese female with a BMI 31, admitted because of abdominal pain. She has multiple complaints but her strong CC was mostly abdominal pain. NO emesis, no recent travel or sick contact, no change in BM, She is tolerating a diet and CAT scan failed to reveal any acute pathology. CAT scan below: There is some apparent cystic changes at lung bases. Mild patchy opacity right lung base dependently. Moderate calcific atherosclerosis. No intrahepatic bile duct dilation. No definite peripancreatic fluid collection. Questionable mild haziness of fat adjacent to uncinate process and head of pancreas. Spleen unremarkable. No left-sided hydronephrosis. Urinary bladder is largely decompressed. No right-sided hydronephrosis. There is a 2 mm calcification in the right hemipelvis but this appears to be adjacent to the ureter rather than within it. Colonic diverticulosis. Wall of the sigmoid colon is prominent in thickness. Portion of left-sided colon also appears mildly prominent in thickness but not very distended. Degenerative changes throughout the spine with multilevel central canal and neural foraminal stenosis. Discharge Information Condition at Discharge: Improved, Stable Follow Up: Weeks (pcp as scheduled/prn) Disposition/Orders: D/C to Home Scheduled Aspirin (Aspirin) 81 Mg Tab.chew, 1 TAB PO DAILY for healthy heart, #30 Ref 3 ( Reported) Entered as Reported by: JOHN RUIZ on 10/02/18 0143 Last Taken: Unknown Dose on 10/01/18 Last Action: Continued on 10/02/18 0146 by JOHN RUIZ Estrogens, Conjugated (Premarin) 0.625 Mg Tablet, 1 TAB PO DAILY for hormone replacement, #30 Ref 11 (Reported) Entered as Reported by: JOHN RUIZ on 10/02/18142 Last Taken: Unknown Dose on 10/01/18 Last Action: Continued on 10/02/18145 by JOHN RUIZ Ferrous Sulfate (Ferrous Sulfate) 325 Mg Tablet, 1 TAB PO BID for anemia, #60 Ref 3 (Reported) Entered as Reported by: JOHN RUIZ on 10/02/18142 Last Taken: Unknown Dose on 10/01/18 Last Action: Continued on 10/02/18145 by JOHN RUIZ Fluoxetine Hcl (Fluoxetine Hcl) 20 Mg Capsule, 1 CAP PO DAILY for depression/ anxiety, #90 Ref 1 (Reported) Entered as Reported by: JOHN RUIZ on 10/02/18142 Last Taken: Unknown Dose on 10/01/18 Last Action: Continued on 10/02/18145 by JOHN RUIZ Fluticasone Propionate (Fluticasone Propionate Nasal [place]) 16 Gm [place].susp, 2 SPRAY NS DAILY for allergies, #1 Ref 11 (Reported) Entered as Reported by: JOHN RUIZ on 10/02/18142 Last Taken: Unknown Dose on 10/01/18 Last Action: Continued on 10/02/18145 by JOHN RUIZ Folic Acid (Folic Acid) 1 Mg Tablet, 1 TAB PO DAILY for folvite, #90 Ref 1 ( Reported) Entered as Reported by: JOHN RUIZ on 10/02/18142 Last Taken: Unknown Dose on 10/01/18 Last Action: Continued on 10/02/18145 by JOHN RUIZ Gabapentin (Gabapentin ) 300 Mg Capsule, 300 MG PO TID for NEUROGENIC PAIN, ( Reported) Entered as Reported by: JOHN RUIZ on 10/02/18142 Last Taken: Unknown Dose on 10/01/18 Last Action: Continued on 10/02/18145 by JOHN RUIZ Lipase/Protease/Amylase (Creon Dr 6,000 Units Capsule) 1 Each Capsule.dr, 2 EACH PO TIDWMEALS for pancreas, (Reported) Entered as Reported by: JOHN RUIZ on 10/02/18142 Last Taken: Unknown Dose on 10/01/18 Last Action: Converted on 10/02/18145 by JOHN RUIZ Metoprolol Tartrate (Metoprolol Tartrate) 25 Mg Tablet, 1 TAB PO BID for blood pressure, #180 Ref 1 (Reported) Entered as Reported by: JOHN RUIZ on 10/02/18142 Last Taken: Unknown Dose on 10/01/18 Last Action: Continued on 10/02/18145 by JOHN RUIZ Nicotine (NICODERM CQ 21mg) 1 Each Patch.td24, 1 PATCH TP DAILY for smoking cessation, #28 Ref 1 (Reported) Entered as Reported by: JOHN RUIZ on 10/02/18142 Last Taken: Unknown Dose on 10/01/18 Last Action: Converted on 10/02/18145 by JOHN RUIZ Omeprazole (Omeprazole) 40 Mg Capsule.dr, 1 CAP PO DAILY for gerd, #30 Ref 3 ( Reported) Entered as Reported by: JOHN RUIZ on 10/02/18142 Last Taken: Unknown Dose on 10/01/18 Last Action: Converted on 10/02/18145 by JOHN RUIZ Pantoprazole Sodium (Protonix) 20 Mg Tablet.dr, 40 MG PO DAILY for stomach, ( Reported) Entered as Reported by: JOHN RUIZ on 10/02/18142 Last Action: Converted on 10/02/18145 by JOHN RUIZ Thiamine Mononitrate (Vitamin B-1) 100 Mg Tablet, 100 MG PO DAILY for vitamins, (Reported) Entered as Reported by: JOHN RUIZ on 10/02/18142 Last Taken: Unknown Dose on 10/01/18 Last Action: Converted on 10/02/18145 by JOHN RUIZ Tiotropium Br/Olodaterol HCl (Stiolto Respimat Inhal [place]) 4 Gm Mist.inhal, 2.5 MCG IH DAILY for lungs, (Reported) Entered as Reported by: JOHN RUIZ on 10/02/18142 Last Taken: Unknown Dose on 10/01/18 Last Action: Converted on 10/02/18145 by JOHN RUIZ Zolpidem Tartrate (Zolpidem Tartrate) 10 Mg Tablet, 1 TAB PO QHS for insomnia, # 30 Ref 2 (Reported) Entered as Reported by: JOHN RUIZ on 10/02/18142 Last Taken: Unknown Dose on 09/30/18 Last Action: Converted on 10/02/18145 by JOHN RUIZ [lidoderm] , 5 % TOP DAILY for left back pain, (Reported) Entered as Reported by: JOHN RUIZ on 10/02/18142 Last Taken: Unknown Dose on 10/01/18 Last Action: Converted on 10/02/18145 by JOHN RUIZ Scheduled PRN Albuterol Sulfate (Proair Hfa Inhaler) 8.5 Gm Hfa.aer.ad, 2 PUFF INH PRN Q6HRS PRN for SHORTNESS OF BREATH, Ref 0 (Reported) Entered as Reported by: JOHN RUIZ on 10/02/18142 Last Taken: Unknown Dose on 10/01/18 Last Action: Continued on 10/02/18145 by JOHN RUIZ Nicotine Polacrilex (Nicorette) 2 Mg Gum, 2 MG BC Q1HR PRN for SMOKING CESSATION , (Reported) Entered as Reported by: JOHN RUIZ on 10/02/18142 Last Taken: Unknown Dose on 10/01/18 Last Action: Converted on 10/02/18145 by JOHN RUIZ Oxycodone/Apap 10-325 (Percocet 10-325 Mg Tablet ) 1 Each Tablet, 1 TAB PO PRN Q6HRS PRN for PAIN, #30 Ref 0 Prescribed by: JIM MCDONALD on 10/02/18 1029 Sennosides (Senexon) 8.6 Mg Tablet, 8.6 MG PO DAILY PRN for CONSTIPATION, ( Reported) Entered as Reported by: JOHN RUIZ on 10/02/18142 Last Taken: Unknown Dose on 10/01/18 Last Action: Converted on 10/02/18145 by JIM JENNINGS MD Oct 02, 2018 10:34
[2018-10-02 11:00] VITALS: BP 102/62
[2018-10-02] MEDS ORDERED: ZOLPIDEM TARTRATE PO SCH (21:00)
[2018-10-02] MEDS ORDERED: PATCH REMOVAL. MC SCH (21:00)
[2018-10-02] MEDS ORDERED: LACTOBACILLUS RHAMNOSUS GG 1 CAPSULE. PO SCH (21:00)
== END 2018-10-02 13:20 | disposition home or self-care (01) ==
LOC: ER 18:40 → UNDOADMIN 22:00 → 5 SOUTH 22:00 → UNDOADMOB 22:00 → UNDODISIN 10-02 13:20
PROVIDERS: ADMIT Internal Medicine; ATTEND Internal Medicine
DX: K85.90 Acute pancreatitis without necrosis or infection, unspecified (principal); J18.9 Pneumonia, unspecified organism; E66.9 Obesity, unspecified; F32.9 Major depressive disorder, single episode, unspecified; F11.20 Opioid dependence, uncomplicated; Z68.31 Body mass index [BMI] 31.0-31.9, adult
CPT/HCPCS: 36415; 71045; 74176; 80053; 83605; 83690; 83735; 84484; 85025; 85610; 87040; 93005; 94640; 96365; 96366; 96367; 96375; 96376; 99284; 99406; G0378; J1956; J2270; J2405; J3010; J3490; J7030; 96374; G0379; 99285-25

== ENCOUNTER 2020-12-30 16:23 | Inpatient (IN) | payer OTHER ==
[~2020-12-30] VITALS: Ht 165.1 cm; Wt 81.0 kg
[~2020-12-30 16:23] MED LIST: ALBU2.5V8 INH; ASPI-630 PO; ESTR0.62 PO; FERR325T14 PO; FLUO20CA20 PO; FLUT16SP NS; FOLI1TAB16 PO; GABA300C18 PO; LIPA1CAP2 PO; METO25TA4 PO; NICO1PAT21 TP; NICO2GUM5 BC; OMEP40CA45 PO; OXYC1TAB22 PO; PANT20TA2 PO; SENN8.6T4 PO; THIA100T22 PO; TIOT4MIS3 IH; ZOLP10TA4 PO; lidoderm TOP
[2020-12-30] MEDS ORDERED: methylPREDNISolone SOD SUCC PF 125 MG/2 ML VIAL. IV ONE (16:30)
[2020-12-30] MEDS ORDERED: IPRATRPIUM/ALBUTEROL 0.5/2.5MG 3 ML NEBU. NEB ONE (16:30)
[2020-12-30 16:42] LABS: BASE EXCESS ABG -10 mmol/L (-3-3); HCO3 ABG 18 mmol/L (21-28); PCO2 ABG 46 mmHg (35-46); PO2 ABG 65 mmHg (65-108); SAT O2 ABG 86 % (92-99)
--- NOTE | 2020-12-30 16:54 | PHYS DOC ---
Past Medical History Past Medical History: COPD, Hypertension, Other Additional Past Medical Histor: BLOOD TRANSFUSION (ESTHER FINLEY DO) Past Surgical History: Cholecystectomy, Other Additional Past Surgical Histo: HEMORRHOID,R ANKLE ORIF,REMOVAL HARDWARE (ESTHER FINLEY DO) Smoking Status: Current Every Day Smoker Alcohol Use: None Drug Use: Marijuana (ESTHER FINLEY DO) General Adult EDM: Chief Complaint: SYNCOPE HPI: HPI: Patient is a 60 year old female who was brought here by EMS from a local establishment after several episodes of syncope. EMS says she was walking from her car at the parking lot to go into for [employer] when she passed out. She refused to seek help but she started having shortness of air. EMS was then called, when they got there patient stood up to walk to the EMS car then she passed out again. EMS said they caught her before she found out. Her oxygen saturation was in the 60%. She was wheezing normally. Patient was given oxygen. Patient has history of COPD, she is on 2 L oxygen as needed. Patient continues to smoke. Patient says she was at a bar today, had about 5 mixed drinks. She became hungry so she was going into for [employer] to have a dinner. Patient denies any chest pain, no abdominal pain, no nausea vomiting. Patient denies fever, but does has nonproductive cough,. Patient denies any back pain or extremity pain. Upon arrival to the ER patient was in respiratory distress, she was wheezing, speaking a few words sentences, tachypneic. Patient denies any history of COVID-19 infection, she has been tested multiple times for Covid "all came back negative. Patient does not want to have Covid vaccine. (ESTHER FINLEY DO) Review of Systems: Review of Systems: Constitutional: Denies fever or chills. [] Eyes: Denies change in visual acuity. [] HENT: Denies nasal congestion or sore throat. [] Respiratory: Positive for cough and trouble breathing Cardiovascular: Denies chest pain or edema. [] GI: Denies abdominal pain, nausea, vomiting, bloody stools or diarrhea. [] : Denies dysuria. [] Musculoskeletal: Denies back pain or joint pain. [] Integument: Denies rash. [] Neurologic: Positive for syncope, no focal weakness or sensory change Endocrine: Denies polyuria or polydipsia. [] Lymphatic: Denies swollen glands. [] Psychiatric: Denies depression or anxiety. [] (ESTHER FINLEY DO) Heart Score: C/O Chest Pain: N/A Risk Factors: Risk Factors: DM, Current or recent (<one month) smoker, HTN, HLP, family history of CAD, obesity. Risk Scores: Score 0 - 3: 2.5% MACE over next 6 weeks - Discharge Home Score 4 - 6: 20.3% MACE over next 6 weeks - Admit for Clinical Observation Score 7 - 10: 72.7% MACE over next 6 weeks - Early Invasive Strategies (ESTHER FINLEY DO) Current Medications: Current Medications Medications (Trade) Dose Ordered Sig/Carlos Alberto Start Time Stop Time Status Last Admin Dose Admin Albuterol/ Ipratropium (Duoneb) 3 ml 1X ONCE 12/30/20 16:30 12/30/20 16:31 DC 12/30/20 16:40 3 ML Methylprednisolone Sodium Succinate (SOLU-Medrol 125MG VIAL) 125 mg 1X ONCE 12/30/20 16:30 12/30/20 16:31 DC 12/30/20 16:52 125 MG (ESTHER FINLEY DO) Allergies: Allergies: Allergies Coded Allergies Type Severity Reaction Last Updated Verified doxycycline Allergy Unknown 08/29/16 Yes Uncoded Allergies Type Severity Reaction Last Updated Verified UNKNOWN ANESTHETIC THAT THEY PUT YOU TO SLEEP WITH Allergy Unknown 08/29/16 (ESTHER FINLEY DO) Physical Exam: PE: Constitutional: Well developed, well nourished, mild acute distress, non-toxic appearance. [] HENT: Normocephalic, atraumatic, bilateral external ears normal, oropharynx moist, no oral exudates, nose normal. [] Eyes: PERRLA, EOMI, conjunctiva normal, no discharge. [] Neck: Normal range of motion, no tenderness, supple, no stridor. [] Cardiovascular:Heart rate regular rhythm, no murmur [] Lungs & Thorax: respiratory distress mild, tachypnic, decreased air movement with inspiratory and expiratory wheezing to auscultation [] Abdomen: Bowel sounds normal, soft, no tenderness, no masses, no pulsatile masses. [] Skin: Warm, dry, no erythema, no rash. [] Back: No tenderness, no CVA tenderness. [] Extremities: No tenderness, no cyanosis, no clubbing, ROM intact, no edema. [] Neurologic: Alert and oriented X 3, normal motor function, normal sensory function, no focal deficits noted. [] Psychologic: Affect normal, judgement normal, mood normal. [] (ESTHER FINLEY DO) Current Patient Data: Labs: Laboratory Tests Test 12/30/20 16:20 O2 Saturation 86 % (92-99) L Arterial Blood pH 7.21 (7.35-7.45) L Arterial Blood pCO2 at Patient Temp 46 mmHg (35-46) Arterial Blood pO2 at Patient Temp 65 mmHg (65-108) Arterial Blood HCO3 18 mmol/L (21-28) L Arterial Blood Base Excess -10 mmol/L (-3-3) L FiO2 3 lpm nc Vital Signs: Vital Signs Date Time Temp Pulse Resp B/P (MAP) Pulse Ox O2 Delivery O2 Flow Rate FiO2 12/30/20 16:40 93 Nasal Cannula 3.0 (ESTHER FINLEY DO) EKG: EKG: EKG was done at 1831, heart rate of 89 bpm, sinus rhythm, no ST segment elevation. [] (ESTHER FINLEY DO) EKG: Correction to above EKG time (1631) Repeat EKG at 1700 noted NSR at 88bpm, NO ST elevation, QRS 86ms, QT/QTc 414/505ms, Q wave in III (WILLI GREGORY DO) Radiology/Procedures: Radiology/Procedures: [][facility] [address] [place], [place] [id number] IMAGING REPORT Signed PATIENT: JUSTYN PATEL ACCOUNT: [id number] : 1960 LOCATION: ER AGE: 60 SEX: F EXAM STATUS: REG ER ORD. PHYSICIAN: ESTHER FINLEY DO REASON: syncope twice today PROCEDURE: CT HEAD WO CONTRAST STUDY: CT head without contrast INDICATION: Syncope. COMPARISON: None. TECHNIQUE: Axial CT imaging through the head without the use of intravenous contrast. Sagittal and coronal reformats were obtained. One or more of the following individualized dose reduction techniques were utilized for this examination: 1. Automated exposure control 2. Adjustment of the mA and/or kV according to patient size 3. Use of iterative reconstruction technique. FINDINGS: No acute intracranial hemorrhage. No CT evidence for an acute cortical infarction. No localized mass effect, midline shift or hydrocephalus. No depressed calvarial fracture. Normally aerated mastoid air cells, middle ears and visualized paranasal sinuses. IMPRESSION: No intracranial abnormality by CT to explain the patient's syncope. Electronically signed by: TRINITY VASQUEZ MD (12/30/2020 5:22 PM) [id number] DICTATED and SIGNED BY: TRINITY VASQUEZ MD DATE: 12/30/20 [id number] [facility] [address] [place], [place] [id number] IMAGING REPORT Signed PATIENT: JUSTYN PATEL ACCOUNT: [id number] : 1960 LOCATION: ER AGE: 60 SEX: F EXAM STATUS: PRE ER ORD. PHYSICIAN: ESTHER FINLEY DO REASON: soa PROCEDURE: PORTABLE CHEST 1V Exam Date: 12/30/2020 4:34 PM XR CHEST 1V Indication: Reason: soa / Spl. Instructions: / History: Comparison: October 01, 2018 FINDINGS/ IMPRESSION: The cardiac silhouette is enlarged. Prominent diffuse interstitial markings are again seen bilaterally, nonspecific but could represent chronic changes, interstitial edema, or infection. The appearance is similar compared to the prior exam. There is no appreciable pleural effusion or pneumothorax. Electronically signed by: Jens Monroy MD (12/30/2020 5:02 PM) [facility] DICTATED and SIGNED BY: JENS MONROY MD DATE: 12/30/20 [id number] (ESTHER FINLEY DO) Radiology/Procedures: PROCEDURE: PORTABLE CHEST 1V Exam Date: 12/30/2020 4:34 PM XR CHEST 1V Indication: Reason: soa / Spl. Instructions: / History: Comparison: October 01, 2018 FINDINGS/ IMPRESSION: The cardiac silhouette is enlarged. Prominent diffuse interstitial markings are again seen bilaterally, nonspecific but could represent chronic changes, interstitial edema, or infection. The appearance is similar compared to the prior exam. There is no appreciable pleural effusion or pneumothorax. Electronically signed by: Jens Monroy MD (12/30/2020 5:02 PM) [facility] PROCEDURE: CT HEAD WO CONTRAST STUDY: CT head without contrast INDICATION: Syncope. COMPARISON: None. TECHNIQUE: Axial CT imaging through the head without the use of intravenous contrast. Sagittal and coronal reformats were obtained. One or more of the following individualized dose reduction techniques were utilized for this examination: 1. Automated exposure control 2. Adjustment of the mA and/or kV according to patient size 3. Use of iterative reconstruction technique. FINDINGS: No acute intracranial hemorrhage. No CT evidence for an acute cortical infarction. No localized mass effect, midline shift or hydrocephalus. No depressed calvarial fracture. Normally aerated mastoid air cells, middle ears and visualized paranasal sinuses. IMPRESSION: No intracranial abnormality by CT to explain the patient's syncope. Electronically signed by: TRINITY VASQUEZ MD (12/30/2020 5:22 PM) [id number] PROCEDURE: CT CHEST WO CONTRAST Exam: CT of chest without contrast INDICATION: Short of air, hypoxia TECHNIQUE: Sequential axial images through the chest obtained without IV contrast. Sagittal and coronal reformatted images were reconstructed from the axial data and reviewed. Comparisons: Radiograph same day FINDINGS: Visualized portions of the thyroid are unremarkable. No enlarged mediastinal lymph nodes. Heart is mildly enlarged. No pericardial effusion. Thoracic aorta has a normal course and caliber. Pulmonary artery is not enlarged. Airways are patent. Mild bronchial wall thickening is noted. There is increased interstitial opacities in lungs diffusely. No consolidation or pneumothorax. No pleural effusion. Visualized upper abdomen is unremarkable. No suspicious osseous lesions or acute fractures. IMPRESSION: Findings likely related to pulmonary edema. Atypical infectious process is also possible. Exposure: One or more of the following in the visualized dose reduction techniques were utilized for this examination: 1. Automated exposure control 2. Adjustment of the MA and/or KV according to patient size 3. Use of iterative of reconstructive technique Electronically signed by: Chuck Crump MD (12/30/2020 6:28 PM) [facility] (WILLI GREGORY DO) Course & Med Decision Making: Course & Med Decision Making Pertinent Labs and Imaging studies reviewed. (See chart for details) Patient is a 60-year-old female who presented to ER due to syncopal episode, having trouble breathing, after alcohol intoxication. Patient has history of COPD, she continues to smoke, awaiting CT scan her chest, patient care was endorsed to the incoming physician at shift change, Dr. Anam Gregory. (ESTHER FINLEY DO) Course & Med Decision Making Patient requiring admission for further evaluation and treatment. Discussed with Dr. Delgado (hospitalist) who is in agreement with admission. Discussed findings and plan with patient, who acknowledges understanding and agreement. COVID-19 CRITERIA: The patient was evaluated during the global COVID-19 pandemic, and that diagnosis was suspected/considered upon their initial presentation. Their evaluation, treatment and testing was consistent with current guidelines for patients who present with complaints or symptoms that may be related to COVID-19. (WILLI GREGORY DO) Dragon Disclaimer: Dragon Disclaimer: This electronic medical record was generated, in whole or in part, using a voice recognition dictation system. (ESTHER FINLEY DO) Departure Departure Impression: Primary Impression: Syncope and collapse Additional Impressions: Alcohol intoxication Qualified Codes: F10.920 - Alcohol use, unspecified with intoxication, uncomplicated Acute exacerbation of CHF (congestive heart failure) Qualified Codes: I50.9 - Heart failure, unspecified Respiratory failure Qualified Codes: J96.01 - Acute respiratory failure with hypoxia Suspected 2019 novel coronavirus infection Lactic acidosis Acute on chronic renal insufficiency Disposition: 09 ADMITTED INPT THIS HOSP Admitting Physician: FELIZ Reno) (WILLI GREGORY DO) Condition: STABLE Referrals: CORRINA WOOD MD (PCP) COVID-19 Assessment: COVID-19 Patient Risks: Age 65 or older: No Sign of co-morbidity: Yes Exp to person + for COVID: No Exp to PUI: No Travel from affected area: No Lower respiratory symptoms: Yes Fever: No Other: Yes (WILLI GREGORY DO) PPE Use: Full PPE with N95 mask or PAPR: Yes (WILLI GREGORY DO) Critical Care Time Critical care time was 30 minutes which includes time at bedside, spent in discussion of patient's care with specialists and/or family members, with interpretation of laboratory and/or radiological studies and is exclusive of procedures. (WILLI GREGORY DO) ESTHER FINLEY DO Dec 30, 2020 16:54 WILLI GREGORY DO Dec 30, 2020 20:23
[2020-12-30 17:04] LABS: BASO # 0.1 x10^3/uL (0.0-0.2); BASO % 1 % (0-3); EOS # 0.2 x10^3/uL (0.0-0.7); EOS % 2 % (0-3); HEMATOCRIT 28.5 % (36.0-47.0); LYMPH # 0.7 x10^3/uL (1.0-4.8); LYMPH % 10 % (24-48); MEAN CORPUSCULAR HEMOGLOBIN 28 pg (25-35); MEAN CORPUSCULAR HGB CONC 31 g/dL (31-37); MEAN CORPUSCULAR VOLUME 90 fL (79-100); MONO # 0.4 x10^3/uL (0.0-1.1); MONO % 5 % (0-9); NEUT # 5.9 x10^3/uL (1.8-7.7); NEUT % 82 % (31-73); PLATELET COUNT 311 x10^3/uL (140-400); RED BLOOD COUNT 3.16 x10^6/uL (3.50-5.40); RED CELL DISTRIBUTION WIDTH 18.4 % (11.5-14.5); WHITE BLOOD COUNT 7.3 x10^3/uL (4.0-11.0)
--- NOTE | 2020-12-30 17:05 | RAD ---
Exam Date: 12/30/2020 4:34 PM XR CHEST 1V Indication: Reason: soa / Spl. Instructions: / History: Comparison: October 01, 2018 FINDINGS/ IMPRESSION: The cardiac silhouette is enlarged. Prominent diffuse interstitial markings are again seen bilaterall y, nonspecific but could represent chronic changes, interstitial edema, or infection. The appearance is similar compared to the prior exam. There is no appreciable pleural effusion or pneumothorax. Electronically signed by: Bib Monroy MD (12/30/2020 5:02 PM) [facility]
[2020-12-30 17:16] LABS: CALCIUM 8.1 mg/dL (8.5-10.1); CREATININE 2.2 mg/dL (0.6-1.0); GFR 27.5; POTASSIUM 4.2 mmol/L (3.5-5.1)
[2020-12-30 17:21] LABS: ALBUMIN/GLOBULIN RATIO 0.6 (1.0-1.7); MAGNESIUM 1.8 mg/dL (1.8-2.4); TOTAL BILIRUBIN 0.2 mg/dL (0.2-1.0); TOTAL PROTEIN 8.2 g/dL (6.4-8.2)
--- NOTE | 2020-12-30 17:24 | RAD ---
STUDY: CT head without contrast INDICATION: Syncope. COMPARISON: None. TECHNIQUE: Axial CT imaging through the head without the use of intravenous contrast. Sagittal and co misael reformats were obtained. One or more of the following individualized dose reduction techniques were utilized for this examinat ion: 1. Automated exposure control 2. Adjustment of the mA and/or kV according to patient size 3. Use of iterative reconstruction technique. FINDINGS: No acute intracranial hemorrhage. No CT evidence for an acute cortical infarction. No localized mass effect, midline shift or hydrocephalus. No depressed calvarial fracture. Normally aerated mastoid air cells, middle ears and visualized paran jonathon sinuses. IMPRESSION: No intracranial abnormality by CT to explain the patient's syncope. Electronically signed by: TRINITY VASQUEZ MD (12/30/2020 5:22 PM) [id number]
--- NOTE | 2020-12-30 18:31 | RAD ---
Exam: CT of chest without contrast INDICATION: Short of air, hypoxia TECHNIQUE: Sequential axial images through the chest obtained without IV contrast. Sagittal and coron al reformatted images were reconstructed from the axial data and reviewed. Comparisons: Radiograph same day FINDINGS: Visualized portions of the thyroid are unremarkable. No enlarged mediastinal lymph nodes. Heart is mildly enlarged. No pericardial effusion. Thoracic aorta has a normal course and caliber. Pu lmonary artery is not enlarged. Airways are patent. Mild bronchial wall thickening is noted. There is increased interstitial opacitie s in lungs diffusely. No consolidation or pneumothorax. No pleural effusion. Visualized upper abdomen is unremarkable. No suspicious osseous lesions or acute fractures. IMPRESSION: Findings likely related to pulmonary edema. Atypical infectious process is also possible. Exposure: One or more of the following in the visualized dose reduction techniques were utilized for this examination: 1. Automated exposure control 2. Adjustment of the MA and/or KV according to patient size 3. Use of iterative of reconstructive technique Electronically signed by: Chuck Crump MD (12/30/2020 6:28 PM) [facility]
[2020-12-30] MEDS ORDERED: BUMETANIDE 1 MG/4 ML VIAL. IV ONE (18:45)
[2020-12-30] MEDS ORDERED: ACETAMINOPHEN 325 MG TABLET. PO PRN ×2 (20:30→20:45)
[2020-12-30] MEDS ORDERED: ONDANSETRON PF 4 MG/2 ML VIAL. IV PRN (20:30)
--- NOTE | 2020-12-30 20:41 | PDOC1 ---
History and Physical Date of Service: DOS: DATE: 12/30/20 TIME: 20:32 Chief Complaint: Chief Complain: Syncope and shortness of breath History of Present Illness: HPI: 60 year old female who was brought here by EMS from a local establishment after several episodes of syncope. EMS says she was walking from her car at the parking lot to go into for [employer] when she passed out. She refused to seek help but she started having shortness of air. EMS was then called, when they got there patient stood up to walk to the EMS car then she passed out again. EMS said they caught her before she found out. Her oxygen saturation was in the 60%. She was wheezing normally. Patient was given oxygen. Patient has history of COPD, she is on 2 L oxygen as needed. Patient continues to smoke. Patient says she was at a bar today, had about 5 mixed drinks. She became hungry so she was going into for [employer] to have a dinner. Patient denies any chest pain, no abdominal pain, no nausea vomiting. Patient denies fever, but does has nonproductive cough,. Patient denies any back pain or extremity pain. Upon arrival to the ER patient was in respiratory distress, she was wheezing, speaking a few words sentences, tachypneic. Patient denies any history of COVID-19 infection, she has been tested multiple times for Covid "all came back negative. Patient does not want to have Covid vaccine. Past Medical/Surgical History: PMH/PSH: Past Medical History: COPD, Hypertension, Past Surgical History: Cholecystectomy, HEMORRHOID,R ANKLE ORIF,REMOVAL HARDWARE Allergies: Allergies: Coded Allergies: doxycycline (Verified Allergy, Unknown, 08/29/16) Uncoded Allergies: UNKNOWN ANESTHETIC THAT THEY PUT YOU TO SLEEP WITH (Allergy, Unknown, 08/29/16) Family History: Family History: Reviewed with no relevant findings Social History: Social History: Smoking Status: Current Every Day Smoker Alcohol Use: None Drug Use: Marijuana Current Medications: Current Medications Current Medications Methylprednisolone Sodium Succinate (SOLU-Medrol 125MG VIAL) 125 mg 1X ONCE IV Last administered on 12/30/20at 16:52; Start 12/30/20 at 16:30; Stop 12/30/20 at 16:31; Status DC Albuterol/ Ipratropium (Duoneb) 3 ml 1X ONCE NEB Last administered on 1at 16:40; Start 12/30/20 at 16:30; Stop 12/30/20 at 16:31; Status DC Bumetanide (Bumex) 1 mg 1X ONCE IV Last administered on 12/30/20at 19:24; Start 12/30/20 at 18:45; Stop 12/30/20 at 18:48; Status DC Ondansetron HCl (Zofran) 4 mg PRN Q8HRS PRN IV NAUSEA/VOMITING; Start 12/30/20 at 20:30; Stop 12/31/20 at 20:29 Acetaminophen (Tylenol) 650 mg PRN Q4HRS PRN PO FEVER > 100.3'F; Start 12/30/20 at 20:30; Stop 12/31/20 at 20:29 Active Scripts Active Percocet 10-325 Mg Tablet (Oxycodone/Acetaminophen) 1 Each Tablet 1 Tab PO PRN Q6HRS PRN Reported Zolpidem Tartrate 10 Mg Tablet 1 Tab PO QHS Vitamin B-1 (Thiamine Mononitrate) 100 Mg Tablet 100 Mg PO DAILY Stiolto Respimat Inhal [place] (Tiotropium Br/Olodaterol HCl) 4 Gm Mist.inhal 2.5 Mcg IH DAILY Senexon (Sennosides) 8.6 Mg Tablet 8.6 Mg PO DAILY PRN Proair Hfa Inhaler (Albuterol Sulfate) 8.5 Gm Hfa.aer.ad 2 Puff INH PRN Q6HRS PRN Protonix (Pantoprazole Sodium) 20 Mg Tablet.dr 40 Mg PO DAILY Creon 6,000 Units Capsule (Lipase/Protease/Amylase) 1 Each Capsule.dr 2 Each PO TIDWMEALS Omeprazole 40 Mg Capsule.dr 1 Cap PO DAILY Nicorette (Nicotine Polacrilex) 2 Mg Gum 2 Mg BC Q1HR PRN NICODERM CQ 21mg (Nicotine) 1 Each Patch.td24 1 Patch TP DAILY Metoprolol Tartrate 25 Mg Tablet 1 Tab PO BID [lidoderm] 5 % TOP DAILY Gabapentin (Gabapentin) 300 Mg Capsule 300 Mg PO TID Folic Acid 1 Mg Tablet 1 Tab PO DAILY Fluticasone Propionate Nasal [place] (Fluticasone Propionate) 16 Gm Lagro.susp 2 Lagro NS DAILY Fluoxetine Hcl 20 Mg Capsule 1 Cap PO DAILY Ferrous Sulfate 325 Mg Tablet 1 Tab PO BID Premarin (Estrogens, Conjugated) 0.625 Mg Tablet 1 Tab PO DAILY Aspirin 81 Mg Tab.chew 1 Tab PO DAILY ROS: Review of Systems Review of System REVIEW OF SYSTEMS: GENERAL: Denies weakness SKIN: No bruising, hair changes or rashes. EYES: No blurred, double or loss of vision. NOSE AND THROAT: No history of nosebleeds, hoarseness or sore throat. HEART: No history of palpitations, chest pain or shortness of breath on exertion. LUNGS: Denies cough, hemoptysis, wheezing or shortness of breath. GASTROINTESTINAL: Denies changes in appetite, nausea, vomiting, diarrhea or constipation. GENITOURINARY: No history of frequency, urgency, hesitancy or nocturia. NEUROLOGIC: Denies history of numbness, tingling, or tremor. PSYCHIATRIC: No history of panic, anxiety or depression. ENDOCRINE: No history of heat or cold intolerance, polyuria or polydipsia. EXTREMITIES: Denies joint pain, pain on walking or stiffness. Physical Exam: Vital Signs: Vital Signs Date Time Temp Pulse Resp B/P (MAP) Pulse Ox O2 Delivery O2 Flow Rate FiO2 12/30/20 16:55 87 20 101/58 (72) 89 Nasal Cannula 3.0 12/30/20 16:25 98.7 98.7 Physcial Exam: GEN: No apparent distress. Alert and oriented HEENT: Normal cephalic, atraumatic, external auditory canals are patent EYES: Extraocular muscles are intact, pupil are equally round and reactive to light and accommodation MUSCULOSKELETAL: Well developed , well nourished, good range of motion ENDOCRINE: No thyromegaly was palpated LYMPHATICS: No cervical chain or axillary nodes were noted HEMATOPOIETIC: No bruising NECK: Supple, no JVD, no thyromegaly was noted LUNGS: Bilateral expiratory wheezing HEART: RRR, S!, S2 present. Peripheral pulses intact, no obvious murmurs noted ABDOMEN: Soft, nontender. Positive bowel sounds, no organomegaly, normal bowel sounds EXTREMITIES: Without clubbing, cyanosis, or edema. Pedal pulses intact. Negative Homans sign NEUROLOGIC: Normal speech and tone. A&O x 3, moves all extremities, no obvious focal deficits PSYCHIATRIC: Normal affect, normal mood. Stable SKIN: No ulcerations or rashes, good skin turgor, no jaundice VASCULAR: Good capillary refill, neurovascular bundle appears to be intact Labs: Labs: Laboratory Tests Test 12/30/20 16:20 12/30/20 16:46 12/30/20 19:24 O2 Saturation 86 % (92-99) Arterial Blood pH 7.21 (7.35-7.45) Arterial Blood pCO2 at Patient Temp 46 mmHg (35-46) Arterial Blood pO2 at Patient Temp 65 mmHg (65-108) Arterial Blood HCO3 18 mmol/L (21-28) Arterial Blood Base Excess -10 mmol/L (-3-3) FiO2 3 lpm nc White Blood Count 7.3 x10^3/uL (4.0-11.0) Red Blood Count 3.16 x10^6/uL (3.50-5.40) Hemoglobin 9.0 g/dL (12.0-15.5) Hematocrit 28.5 % (36.0-47.0) Mean Corpuscular Volume 90 fL (79-100) Mean Corpuscular Hemoglobin 28 pg (25-35) Mean Corpuscular Hemoglobin Concent 31 g/dL (31-37) Red Cell Distribution Width 18.4 % (11.5-14.5) Platelet Count 311 x10^3/uL (140-400) Neutrophils (%) (Auto) 82 % (31-73) Lymphocytes (%) (Auto) 10 % (24-48) Monocytes (%) (Auto) 5 % (0-9) Eosinophils (%) (Auto) 2 % (0-3) Basophils (%) (Auto) 1 % (0-3) Neutrophils # (Auto) 5.9 x10^3/uL (1.8-7.7) Lymphocytes # (Auto) 0.7 x10^3/uL (1.0-4.8) Monocytes # (Auto) 0.4 x10^3/uL (0.0-1.1) Eosinophils # (Auto) 0.2 x10^3/uL (0.0-0.7) Basophils # (Auto) 0.1 x10^3/uL (0.0-0.2) Sodium Level 131 mmol/L (136-145) Potassium Level 4.2 mmol/L (3.5-5.1) Chloride Level 98 mmol/L (98-107) Carbon Dioxide Level 22 mmol/L (21-32) Anion Gap 11 (6-14) Blood Urea Nitrogen 24 mg/dL (7-20) Creatinine 2.2 mg/dL (0.6-1.0) Estimated GFR (Cockcroft-Gault) 27.5 BUN/Creatinine Ratio 11 (6-20) Glucose Level 126 mg/dL (70-99) Lactic Acid Level 3.9 mmol/L (0.4-2.0) Calcium Level 8.1 mg/dL (8.5-10.1) Magnesium Level 1.8 mg/dL (1.8-2.4) Total Bilirubin 0.2 mg/dL (0.2-1.0) Aspartate Amino Transf (AST/SGOT) 13 U/L (15-37) Alanine Aminotransferase (ALT/SGPT) 23 U/L (14-59) Alkaline Phosphatase 169 U/L (46-116) Troponin I Quantitative < 0.017 ng/mL (0.000-0.055) < 0.017 ng/mL (0.000-0.055) XA-Ygs-F-Type Natriuretic Peptide 9014 pg/mL (0-124) Total Protein 8.2 g/dL (6.4-8.2) Albumin 3.0 g/dL (3.4-5.0) Albumin/Globulin Ratio 0.6 (1.0-1.7) Lipase 144 U/L (73-393) Ethyl Alcohol Level 110 mg/dL (0-10) Laboratory Tests Test 12/30/20 16:20 12/30/20 16:46 12/30/20 19:24 O2 Saturation 86 % (92-99) Arterial Blood pH 7.21 (7.35-7.45) Arterial Blood pCO2 at Patient Temp 46 mmHg (35-46) Arterial Blood pO2 at Patient Temp 65 mmHg (65-108) Arterial Blood HCO3 18 mmol/L (21-28) Arterial Blood Base Excess -10 mmol/L (-3-3) FiO2 3 lpm nc White Blood Count 7.3 x10^3/uL (4.0-11.0) Red Blood Count 3.16 x10^6/uL (3.50-5.40) Hemoglobin 9.0 g/dL (12.0-15.5) Hematocrit 28.5 % (36.0-47.0) Mean Corpuscular Volume 90 fL (79-100) Mean Corpuscular Hemoglobin 28 pg (25-35) Mean Corpuscular Hemoglobin Concent 31 g/dL (31-37) Red Cell Distribution Width 18.4 % (11.5-14.5) Platelet Count 311 x10^3/uL (140-400) Neutrophils (%) (Auto) 82 % (31-73) Lymphocytes (%) (Auto) 10 % (24-48) Monocytes (%) (Auto) 5 % (0-9) Eosinophils (%) (Auto) 2 % (0-3) Basophils (%) (Auto) 1 % (0-3) Neutrophils # (Auto) 5.9 x10^3/uL (1.8-7.7) Lymphocytes # (Auto) 0.7 x10^3/uL (1.0-4.8) Monocytes # (Auto) 0.4 x10^3/uL (0.0-1.1) Eosinophils # (Auto) 0.2 x10^3/uL (0.0-0.7) Basophils # (Auto) 0.1 x10^3/uL (0.0-0.2) Sodium Level 131 mmol/L (136-145) Potassium Level 4.2 mmol/L (3.5-5.1) Chloride Level 98 mmol/L (98-107) Carbon Dioxide Level 22 mmol/L (21-32) Anion Gap 11 (6-14) Blood Urea Nitrogen 24 mg/dL (7-20) Creatinine 2.2 mg/dL (0.6-1.0) Estimated GFR (Cockcroft-Gault) 27.5 BUN/Creatinine Ratio 11 (6-20) Glucose Level 126 mg/dL (70-99) Lactic Acid Level 3.9 mmol/L (0.4-2.0) Calcium Level 8.1 mg/dL (8.5-10.1) Magnesium Level 1.8 mg/dL (1.8-2.4) Total Bilirubin 0.2 mg/dL (0.2-1.0) Aspartate Amino Transf (AST/SGOT) 13 U/L (15-37) Alanine Aminotransferase (ALT/SGPT) 23 U/L (14-59) Alkaline Phosphatase 169 U/L (46-116) Troponin I Quantitative < 0.017 ng/mL (0.000-0.055) < 0.017 ng/mL (0.000-0.055) NS-Lmn-W-Type Natriuretic Peptide 9014 pg/mL (0-124) Total Protein 8.2 g/dL (6.4-8.2) Albumin 3.0 g/dL (3.4-5.0) Albumin/Globulin Ratio 0.6 (1.0-1.7) Lipase 144 U/L (73-393) Ethyl Alcohol Level 110 mg/dL (0-10) Images: Images CT CHEST IMPRESSION: Findings likely related to pulmonary edema. Atypical infectious process is also possible. CT HEAD IMPRESSION: No intracranial abnormality by CT to explain the patient's syncope. Assessment/Plan Assessment/Plan Acute hypoxic respiratory failure Acute CHF exacerbation Acute COPD exacerbation Acute volume overload Acute on chronic kidney injury due to vasomotor nephropathy Mixed respiratory and metabolic acidosis Lactic acidosis Elevated alkaline phosphatase Moderate protein malnutrition Admit to medicine for further management Cardiology consult for CHF exacerbation Pulmonology consult for COPD exacerbation O2 supplementation to maintain O2 saturations greater than 92%. BiPAP as needed Continue Bumex daily IV IV Solu-Medrol Strict I's and O's DuoNebs as needed Heparin for DVT prophylaxis Protonix while on steroids GI prophylaxis ADA diet Full code Discussed with RN and SW Disposition inpatient management as above Surrogate decision maker is the Hemal Turcios A total of 45 minutes of critical care time was spent in reviewing chart, labs, and images. Discussed with RN and SW. Justifications for Admission Other Justification RAJI RUIZ MD Dec 30, 2020 20:41
[2020-12-30] MEDS ORDERED: DOCUSATE SODIUM 100 MG CAPSULE. PO PRN (20:45)
[2020-12-30] MEDS ORDERED: SENNOSIDES 8.6 MG TABLET PO PRN (20:45)
[2020-12-30] MEDS ORDERED: DEXTROSE 50% 25 GM / 50ML DISP.SYRIN. IV PRN (20:45)
[2020-12-30] MEDS ORDERED: ONDANSETRON PF 4 MG/2 ML VIAL. IVP PRN (20:45)
[2020-12-30 21:26] LABS: BILIRUBIN,URINE NEGATIVE (NEG); CLARITY,URINE CLEAR; COLOR,URINE YELLOW; NITRITE,URINE NEGATIVE (NEG); PH,URINE 5.5 (<5.0-8.0); PROTEIN,URINE NEGATIVE (NEG-TRACE); UROBILINOGEN,URINE 0.2 mg/dL (0.2 mg/dL)
[2020-12-30 21:30] LABS: BARBITURATES NEG (NEG); BENZODIAZEPINES NEG (NEG); CANNABINOIDS NEG (NEG); COCAINE NEG (NEG); METHADONE NEG (NEG); OPIATES POS (NEG); PHENCYCLIDINE NEG (NEG)
[2020-12-30 21:33] LABS: AMPHETAMINE/METHAMPHETAMINE NEG (NEG); BACTERIA,URINE MANY /HPF (0-FEW)
[2020-12-30 21:36] LABS: RBC,URINE 0 /HPF (0-2); WBC,URINE OCC /HPF (0-4)
[2020-12-30 22:30] VITALS: BP 132/99
[2020-12-30] MEDS: MORPHINE SULFATE 4 MG/ML VIAL. IV PRN (23:16)
[2020-12-30] MEDS: HEPARIN for SUB-Q USE 5,000 UNIT/ML VIAL. SQ SCH (23:17)
[2020-12-30] MEDS: methylPREDNISolone SOD SUCC PF 40 MG/ML VIAL. IV SCH (23:18)
--- NOTE | 2020-12-31 00:16 | EKG ---
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
--- NOTE | 2020-12-31 00:16 | EKG ---
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
[2020-12-31] MEDS: MORPHINE SULFATE 4 MG/ML VIAL. IV PRN (02:58)
[2020-12-31 03:05] VITALS: BP 116/74
[2020-12-31] MEDS: methylPREDNISolone SOD SUCC PF 40 MG/ML VIAL. IV SCH ×2 (05:24→14:18)
[2020-12-31] MEDS: MORPHINE SULFATE 2 MG/ML VIAL. IV PRN ×2 (06:18→08:06)
[2020-12-31] MEDS: HEPARIN for SUB-Q USE 5,000 UNIT/ML VIAL. SQ SCH (08:07)
[2020-12-31 08:20] LABS: BASO % 0 % (0-3); EOS % 0 % (0-3); HEMATOCRIT 28.5 % (36.0-47.0); LYMPH # 0.3 x10^3/uL (1.0-4.8); LYMPH % 6 % (24-48); MEAN CORPUSCULAR HEMOGLOBIN 28 pg (25-35); MEAN CORPUSCULAR HGB CONC 32 g/dL (31-37); MEAN CORPUSCULAR VOLUME 89 fL (79-100); MONO # 0.1 x10^3/uL (0.0-1.1); MONO % 2 % (0-9); NEUT # 4.8 x10^3/uL (1.8-7.7); NEUT % 92 % (31-73); PLATELET COUNT 311 x10^3/uL (140-400); RED CELL DISTRIBUTION WIDTH 18.3 % (11.5-14.5); WHITE BLOOD COUNT 5.3 x10^3/uL (4.0-11.0)
[2020-12-31 08:22] LABS: CALCIUM 8.3 mg/dL (8.5-10.1); CREATININE 1.5 mg/dL (0.6-1.0); GFR 42.9; MAGNESIUM 1.7 mg/dL (1.8-2.4); PHOSPHORUS 4.4 mg/dL (2.6-4.7); POTASSIUM 5.9 mmol/L (3.5-5.1)
[2020-12-31 08:30] VITALS: BP 139/94
[2020-12-31] MEDS: oxyCODONE/APAP 10/325 1 TAB TABLET PO PRN ×2 (08:59→14:16)
[2020-12-31] MEDS ORDERED: METOPROLOL TART IMMED RELEASE 25 MG TABLET. PO SCH (09:00)
--- NOTE | 2020-12-31 10:34 | CONS ---
DATE OF CONSULTATION: PULMONARY CONSULTATION ATTENDING PHYSICIAN: Dr. Evin Delgado. REASON FOR CONSULTATION: Respiratory failure, syncope. HISTORY OF PRESENT ILLNESS: The patient is a 60-year-old female, who has been a smoker since age 16. She also drinks alcohol. She was brought into the hospital after she had a syncopal episode. She was walking from her car at the parking lot and she passed out. She said she had a drink the night before. The patient was brought into the hospital after EMS was called. Her saturations were in the 60s. She was wheezing. She was given breathing treatment, placed on oxygen and transferred to the ICU. According to the ER note, she had 5 mixed drinks. Her urine drug screen was positive for alcohol as well as for opiates. Her CT chest was reviewed. This was done without contrast. There were faint mild interstitial infiltrates. She denied any COVID exposure. She is down to oxygen via nasal cannula at 4 liters, which is her baseline. PAST MEDICAL HISTORY: History of COPD with ongoing tobaccoism, hypertension, alcoholism. PAST SURGICAL HISTORY: Cholecystectomy. ALLERGIES: Reviewed as listed in the MRAD. MEDICATIONS: Reviewed as listed in the MRAD. REVIEW OF SYSTEMS: Ten-point systems obtained. Pertinent positives discussed in my history of present illness, otherwise noncontributory. All systems that were negative were reviewed as well. SOCIAL HISTORY: Smoker since age 16 and still smokes. FAMILY HISTORY: Noncontributory to lungs. PHYSICAL EXAMINATION: VITAL SIGNS: Reviewed, pulse ox 94% on 4 liters, she is afebrile. GENERAL: No obvious respiratory distress, fully awake. NECK: Supple. LUNGS: With diminished breath sounds. CARDIOVASCULAR: With a regular rate. ABDOMEN: Soft, nontender. EXTREMITIES: With no pitting edema. LABORATORIES: Reviewed. Urine drug screen positive for opiates and alcohol. BUN is 21 and creatinine of 1.5, bicarbonate 25. ABGs on admission showed a pH of 7.21, a pCO2 of 46 and a pO2 of 65 with a bicarbonate of 18; this was on 3 liters. White cell count 5.3, hemoglobin 9.0 and platelets are 311. IMPRESSION: 1. Acute hypoxic respiratory failure secondary to syncopal episode. Likely contributed by alcoholism and opiates. 2. Abnormal CT chest with mild interstitial infiltrates, likely mild pulmonary edema. Clinically, much better. 3. Encephalopathy, resolved. 4. History of tobaccoism since age 16. Likely underlying chronic obstructive pulmonary disease, could be moderate to severe. 5. Acute kidney injury. 6. Metabolic acidosis. RECOMMENDATIONS: 1. The patient is at her baseline oxygen at 4 liters. She is awake and following commands. 2. Taper of steroids; no need for a longer duration; 3 days should be sufficient. 3. She is no longer wheezing. 4. Continue bronchodilators. 5. Heparin for DVT prophylaxis. 6. From a pulmonary standpoint, she could even be discharged home if Cardiology does not feel a need for any additional cardiac workup. 7. Discussed with RN and RT. We will follow along with you. Critical care time 33 minutes. NIHARIKA SALGUERO MD DR: MARIA ALEJANDRA/wolf JOB#: [id number] / [id number]
--- NOTE | 2020-12-31 10:35 | PDOC2 ---
MIKE LYNCH ELECTRIC SIGN WIRER 12/31/20 1035: CARDIAC CONSULT DATE OF CONSULT Date of Consult DATE: 12/31/20 TIME: 10:20 REASON FOR CONSULT Reason for Consult: CHF REFERRING PHYSICIAN Referring Physician: Dr. Rios SOURCE Source: Chart review, Patient HISTORY OF PRESENT ILLNESS HISTORY OF PRESENT ILLNESS This is a 60 yo female who presented secondary to syncopal episode. Patient had been at a local bar yesterday and had about 5 mixed drinks. Was hungry so she decided to go get something to eat. She was walking from car in [employer] into [employer] and became very short of breath and subsequently passed out. EMS was called. She had another syncopal episode when she stood up to walk to the EMS cart. EMS was fortunately by her side and was able to catch her before she fell. He oxygen saturation was noted in the 60's and was wheezing. Patient was in respiratory distress upon arrival to ED Patient does have a history of COPD and wears 3-4 L NC at home. Reports he portable O2 is too heavy for her to carry so she does not take oxygen with her when she is out and about. She also reports recent hospitalization at for COPD exacerbation. PMH of CAD s/p CABG, HTN/ DLD, COPD with chronic hypoxic respiratory failure (on 2L), recent diagnosis of RUL adenocarcinoma (s/p radiation), hx RUE DVT (on apixaban), CKD stage III, chronic pancreatitis, anxiety/ depression, and hx congenital heart malformation s/p repair (age 5) who presented to the ED o PAST MEDICAL HISTORY Cardiovascular: CAD, HTN, Other (congenital heart malformation s/p repair at age 5) Pulmonary: COPD, Other (lung CA) CENTRAL NERVOUS SYSTEM: Periperal neuropathy Heme/Onc: Anemia NOS, Cancer (RUL adenocarcinoma (s/p radiation),), Other (RUE DVT) Hepatobiliary: Other (pancreatitis ) Psych: Anxiety, Depression Musculoskeletal: low back pain, Osteoarthritis Renal/: Chronic renal insuff PAST SURGICAL HISTORY Past Surgical History: Cholecystectomy, Other (right ankle ORIF) FAMILY HISTORY Family History: Heart Disease SOCIAL HISTORY Smoke: <1 pack per day ALCOHOL: social Drugs: None Lives: with Family CURRENT MEDICATIONS CURRENT MEDICATIONS Current Medications Medications (Trade) Dose Ordered Sig/Carlos Alberto Route PRN Reason Start Time Stop Time Status Last Admin Dose Admin Methylprednisolone Sodium Succinate (SOLU-Medrol 125MG VIAL) 125 mg 1X ONCE IV 12/30/20 16:30 12/30/20 16:31 DC 12/30/20 16:52 Albuterol/ Ipratropium (Duoneb) 3 ml 1X ONCE NEB 12/30/20 16:30 12/30/20 16:31 DC 12/30/20 16:40 Bumetanide (Bumex) 1 mg 1X ONCE IV 12/30/20 18:45 12/30/20 18:48 DC 12/30/20 19:24 Methylprednisolone Sodium Succinate (SOLU-Medrol 40MG VIAL) 40 mg Q8HRS IV 12/30/20 22:00 12/31/20 05:24 Heparin Sodium (Porcine) (Heparin Sodium) 5,000 unit Q12HR SQ 12/30/20 21:00 12/31/20 08:07 Morphine Sulfate (Morphine Sulfate) 1 mg PRN Q1HR PRN IV PAIN 12/30/20 20:45 12/31/20 08:06 Oxycodone/ Acetaminophen (Percocet 10/325) 1 tab PRN Q6HRS PRN PO MODERATE TO SEVERE PAIN 12/31/20 07:15 12/31/20 08:59 Metoprolol Tartrate (Lopressor) 25 mg BID PO 12/31/20 09:00 12/31/20 08:59 ALLERGIES ALLERGIES: Coded Allergies: Anesthetics - [place] Type - Select A (Verified Allergy, Severe, 12/30/20) Anesthetics - [place] Type- Parabens (Verified Allergy, Severe, 12/30/20) doxycycline (Verified Allergy, Intermediate, 12/30/20) ROS Review of System 14 point ROS conducted with pertinent positives noted above in hPI PHYSICAL EXAM General: Alert, Oriented X3, Cooperative, No acute distress HEENT: Atraumatic Lungs: Other (fine expiratory wheezes ) Heart: Regular rate Abdomen: Soft, No tenderness Extremities: Normal pulses, Other (trace bilateral LE edema ) Skin: No breakdown, No significant lesion Neuro: Normal speech, Sensation intact Psych/Mental Status: Mental status NL, Mood NL MUSCULOSKELETAL: Osteoarthritic changes both hands VITALS/I&O VITALS/I&O: Vital Signs Date Time Temp Pulse Resp B/P (MAP) Pulse Ox O2 Delivery O2 Flow Rate FiO2 12/31/20 08:59 79 148/94 12/31/20 08:59 20 Nasal Cannula 4.0 12/31/20 08:30 98.1 94 98.1 I & O 12/30/20 12/30/20 12/31/20 15:00 23:00 07:00 Intake Total 120 ml 100 ml Output Total 300 ml 900 ml Balance -180 ml -800 ml LABS Lab: Laboratory Tests Test 12/30/20 16:20 12/30/20 16:46 12/30/20 19:24 12/30/20 20:13 O2 Saturation 86 % (92-99) L Arterial Blood pH 7.21 (7.35-7.45) L Arterial Blood pCO2 at Patient Temp 46 mmHg (35-46) Arterial Blood pO2 at Patient Temp 65 mmHg (65-108) Arterial Blood HCO3 18 mmol/L (21-28) L Arterial Blood Base Excess -10 mmol/L (-3-3) L FiO2 3 lpm nc White Blood Count 7.3 x10^3/uL (4.0-11.0) Red Blood Count 3.16 x10^6/uL (3.50-5.40) L Hemoglobin 9.0 g/dL (12.0-15.5) L Hematocrit 28.5 % (36.0-47.0) L Mean Corpuscular Volume 90 fL (79-100) Mean Corpuscular Hemoglobin 28 pg (25-35) Mean Corpuscular Hemoglobin Concent 31 g/dL (31-37) Red Cell Distribution Width 18.4 % (11.5-14.5) H Platelet Count 311 x10^3/uL (140-400) Neutrophils (%) (Auto) 82 % (31-73) H Lymphocytes (%) (Auto) 10 % (24-48) L Monocytes (%) (Auto) 5 % (0-9) Eosinophils (%) (Auto) 2 % (0-3) Basophils (%) (Auto) 1 % (0-3) Neutrophils # (Auto) 5.9 x10^3/uL (1.8-7.7) Lymphocytes # (Auto) 0.7 x10^3/uL (1.0-4.8) L Monocytes # (Auto) 0.4 x10^3/uL (0.0-1.1) Eosinophils # (Auto) 0.2 x10^3/uL (0.0-0.7) Basophils # (Auto) 0.1 x10^3/uL (0.0-0.2) Sodium Level 131 mmol/L (136-145) L Potassium Level 4.2 mmol/L (3.5-5.1) Chloride Level 98 mmol/L (98-107) Carbon Dioxide Level 22 mmol/L (21-32) Anion Gap 11 (6-14) Blood Urea Nitrogen 24 mg/dL (7-20) H Creatinine 2.2 mg/dL (0.6-1.0) H Estimated GFR (Cockcroft-Gault) 27.5 BUN/Creatinine Ratio 11 (6-20) Glucose Level 126 mg/dL (70-99) H Lactic Acid Level 3.9 mmol/L (0.4-2.0) H 1.8 mmol/L (0.4-2.0) Calcium Level 8.1 mg/dL (8.5-10.1) L Magnesium Level 1.8 mg/dL (1.8-2.4) Total Bilirubin 0.2 mg/dL (0.2-1.0) Aspartate Amino Transferase (AST) 13 U/L (15-37) L Alanine Aminotransferase (ALT) 23 U/L (14-59) Alkaline Phosphatase 169 U/L (46-116) H Troponin I Quantitative < 0.017 ng/mL (0.000-0.055) < 0.017 ng/mL (0.000-0.055) TR-Iwq-X-Type Natriuretic Peptide 9014 pg/mL (0-124) H Total Protein 8.2 g/dL (6.4-8.2) Albumin 3.0 g/dL (3.4-5.0) L Albumin/Globulin Ratio 0.6 (1.0-1.7) L Lipase 144 U/L (73-393) Ethyl Alcohol Level 110 mg/dL (0-10) H Test 12/30/20 21:10 12/30/20 22:42 12/31/20 07:40 Urine Collection Type Void Urine Color Yellow Urine Clarity Clear Urine pH 5.5 (<5.0-8.0) Urine Specific [place] 1.010 (1.000-1.030) Urine Protein Negative mg/dL (NEG-TRACE) Urine Glucose (UA) Negative mg/dL (NEG) Urine Ketones (Stick) Negative mg/dL (NEG) Urine Blood Negative (NEG) Urine Nitrite Negative (NEG) Urine Bilirubin Negative (NEG) Urine Urobilinogen Dipstick 0.2 mg/dL (0.2 mg/dL) Urine Leukocyte Esterase Trace (NEG) Urine RBC 0 /HPF (0-2) Urine WBC Occ /HPF (0-4) Urine Squamous Epithelial Cells Many /LPF Urine Bacteria Many /HPF (0-FEW) Urine Opiates Screen Pos (NEG) Urine Methadone Screen Neg (NEG) Urine Barbiturates Neg (NEG) Urine Phencyclidine Screen Neg (NEG) Urine Amphetamine/Methamphetamine Neg (NEG) Urine Benzodiazepines Screen Neg (NEG) Urine Cocaine Screen Neg (NEG) Urine Cannabinoids Screen Neg (NEG) Urine Ethyl Alcohol Pos (NEG) Troponin I Quantitative < 0.017 ng/mL (0.000-0.055) White Blood Count 5.3 x10^3/uL (4.0-11.0) Red Blood Count 3.20 x10^6/uL (3.50-5.40) L Hemoglobin 9.0 g/dL (12.0-15.5) L Hematocrit 28.5 % (36.0-47.0) L Mean Corpuscular Volume 89 fL (79-100) Mean Corpuscular Hemoglobin 28 pg (25-35) Mean Corpuscular Hemoglobin Concent 32 g/dL (31-37) Red Cell Distribution Width 18.3 % (11.5-14.5) H Platelet Count 311 x10^3/uL (140-400) Neutrophils (%) (Auto) 92 % (31-73) H Lymphocytes (%) (Auto) 6 % (24-48) L Monocytes (%) (Auto) 2 % (0-9) Eosinophils (%) (Auto) 0 % (0-3) Basophils (%) (Auto) 0 % (0-3) Neutrophils # (Auto) 4.8 x10^3/uL (1.8-7.7) Lymphocytes # (Auto) 0.3 x10^3/uL (1.0-4.8) L Monocytes # (Auto) 0.1 x10^3/uL (0.0-1.1) Eosinophils # (Auto) 0.0 x10^3/uL (0.0-0.7) Basophils # (Auto) 0.0 x10^3/uL (0.0-0.2) Sodium Level 135 mmol/L (136-145) L Potassium Level 5.9 mmol/L (3.5-5.1) #H Chloride Level 101 mmol/L (98-107) Carbon Dioxide Level 25 mmol/L (21-32) Anion Gap 9 (6-14) Blood Urea Nitrogen 21 mg/dL (7-20) H Creatinine 1.5 mg/dL (0.6-1.0) H Estimated GFR (Cockcroft-Gault) 42.9 Glucose Level 150 mg/dL (70-99) H Calcium Level 8.3 mg/dL (8.5-10.1) L Phosphorus Level 4.4 mg/dL (2.6-4.7) Magnesium Level 1.7 mg/dL (1.8-2.4) L Laboratory Tests 12/30/20 16:46 12/31/20 07:40 Laboratory Tests 12/30/20 16:46 12/31/20 07:40 ECHOCARDIOGRAM ECHOCARDIOGRAM 09/21/20 - 2D + DOPPLER ECHO Interpretation Summary Left Ventricle: The left ventricular size is normal. The left ventricular wall thickness is normal. The left ventricular systolic function is mildly reduced. EF 45-50%. Mild global hypokinesis more noted inferiorly and inferoseptally. Grade II (moderate) left ventricular diastolic dysfunction. Elevated left atrial pressure. Right Ventricle: The right ventricular size is normal. The right ventricular systolic function is at the lower limit of normal. Left Atrium: Mildly dilated. Right Atrium: Mildly dilated. No hemodynamically significant valvular abnormalities. Systolic function appears to be decreased compared to 09/26/2019, EF was 60%. STRESS TEST STRESS TEST 09/22/20 - Procedure: D-SPECT SINGLE GATED THALLIUM DOBUTAMINE MPI STRESS TEST SUMMARY/OPINION: This study is normal stress only perfusion study with no evidence of significant myocardial perfusion abnormalities. Left ventricular systolic function is normal. There are no high risk prognostic indicators present. The pharmacologic ECG portion of the study is negative for ischemia. There are no prior studies available for comparison. In aggregate the current study is low risk in regards to predicted annual cardiovascular mortality rate. ASSESSMENT/PLAN ASSESSMENT/PLAN 1. Acute on chronic respiratory failure with AECOPD and acute CHF. Chronic O2 at 3-4L. Portable O2 too heavy so she did not take with her yesterday. 2. Acute on chronic diastolic CHF; s/p IV Bumex. Echo 09/23 with LVEF 45-50%. Stress test 09/23 without any evidence of ischemia 3. Syncope; CT head without acute changes. Tele without significant arrhythmias. Most probably secondary to significant hypoxia 4. Hypertension; controlled 5. COOPER on CKD, hyperkalemia 6. ETOH 7. RUL adenocarcinoma (s/p radiation) with ongoing tobaccoism 8. Congenital heart defect s/p repair at age 5 9. RUE DVT; on Eliquis Recommendations Diuresis with monitoring of labs Echo to assess LV systolic function , r/o cardiac anomalies Lung optimization Monitor tele Discussed importance of use of portal O2 when unable to use home concentrator Encouraged smoking cessation Could consider outpatient event monitor. MADALYN JAMA MD 12/31/201913: CARDIAC CONSULT ASSESSMENT/PLAN ASSESSMENT/PLAN Patient seen and examined. Agree with VICE PRESIDENT PLANNING's assessment and plan. Acute resp failure probably secondary to combination of AECOPD and acute on chr diast HF Symptoms improved with diuresis and COPD treatment 2D echo showed normal LVF Recent MPI did not show any ischemia Syncope probably related to her AECOPD and alcohol ingestion. Tele did not show any arrhythmias and CT head did not show any acute process Consider event monitor as outpatient Thank you for your consultation MIKE LYNCH APRN Dec 31, 2020 10:35 MADALYN JAMA MD Dec 31, 2020 19:14
--- NOTE | 2020-12-31 10:39 | PDOC ---
[facility] PROGRESS NOTE Date of Service DOS: DATE: 12/31/20 TIME: 10:38 Chief Complaint Chief Complaint Acute hypoxic respiratory failure Acute CHF exacerbation Acute COPD exacerbation Acute volume overload Acute on chronic kidney injury due to vasomotor nephropathy Mixed respiratory and metabolic acidosis Lactic acidosis Elevated alkaline phosphatase Moderate protein malnutrition Admit to medicine for further management Cardiology consult for CHF exacerbation Pulmonology consult for COPD exacerbation O2 supplementation to maintain O2 saturations greater than 92%. BiPAP as needed Continue Bumex daily IV IV Solu-Medrol Strict I's and O's DuoNebs as needed Heparin for DVT prophylaxis Protonix while on steroids GI prophylaxis ADA diet Full code Discussed with RN and SW Disposition inpatient management as above Surrogate decision maker is the Hemal Turcios History of Present Illness History of Present Illness 12/31/20 No acute events overnights. Pending TTE. Improved with steroids and lasix. Patient's chart, labs, images were reviewed and discussed with RN 60 year old female who was brought here by EMS from a local establishment after several episodes of syncope. EMS says she was walking from her car at the parking lot to go into for [employer] when she passed out. She refused to seek help but she started having shortness of air. EMS was then called, when they got there patient stood up to walk to the EMS car then she passed out again. EMS said they caught her before she found out. Her oxygen saturation was in the 60%. She was wheezing normally. Patient was given oxygen. Patient has history of COPD, she is on 2 L oxygen as needed. Patient continues to smoke. Patient says she was at a bar today, had about 5 mixed drinks. She became hungry so she was going into for [place] to have a dinner. Patient denies any chest pain, no abdominal pain, no nausea vomiting. Patient denies fever, but does has nonproductive cough,. Patient denies any back pain or extremity pain. Upon arrival to the ER patient was in respiratory distress, she was wheezing, speaking a few words sentences, tachypneic. Patient denies any history of COVID -19 infection, she has been tested multiple times for Covid "all came back negative. Patient does not want to have Covid vaccine. Vitals/I&O Vitals/I&O: Vital Signs Date Time Temp Pulse Resp B/P (MAP) Pulse Ox O2 Delivery O2 Flow Rate FiO2 12/31/20 08:59 79 148/94 12/31/20 08:59 20 Nasal Cannula 4.0 12/31/20 08:30 98.1 94 98.1 I & O 12/30/20 12/30/20 12/31/20 15:00 23:00 07:00 Intake Total 120 ml 100 ml Output Total 300 ml 900 ml Balance -180 ml -800 ml Labs Labs: Laboratory Tests Test 12/30/20 16:20 12/30/20 16:46 12/30/20 19:24 12/30/20 20:13 O2 Saturation 86 % (92-99) Arterial Blood pH 7.21 (7.35-7.45) Arterial Blood pCO2 at Patient Temp 46 mmHg (35-46) Arterial Blood pO2 at Patient Temp 65 mmHg (65-108) Arterial Blood HCO3 18 mmol/L (21-28) Arterial Blood Base Excess -10 mmol/L (-3-3) FiO2 3 lpm nc White Blood Count 7.3 x10^3/uL (4.0-11.0) Red Blood Count 3.16 x10^6/uL (3.50-5.40) Hemoglobin 9.0 g/dL (12.0-15.5) Hematocrit 28.5 % (36.0-47.0) Mean Corpuscular Volume 90 fL (79-100) Mean Corpuscular Hemoglobin 28 pg (25-35) Mean Corpuscular Hemoglobin Concent 31 g/dL (31-37) Red Cell Distribution Width 18.4 % (11.5-14.5) Platelet Count 311 x10^3/uL (140-400) Neutrophils (%) (Auto) 82 % (31-73) Lymphocytes (%) (Auto) 10 % (24-48) Monocytes (%) (Auto) 5 % (0-9) Eosinophils (%) (Auto) 2 % (0-3) Basophils (%) (Auto) 1 % (0-3) Neutrophils # (Auto) 5.9 x10^3/uL (1.8-7.7) Lymphocytes # (Auto) 0.7 x10^3/uL (1.0-4.8) Monocytes # (Auto) 0.4 x10^3/uL (0.0-1.1) Eosinophils # (Auto) 0.2 x10^3/uL (0.0-0.7) Basophils # (Auto) 0.1 x10^3/uL (0.0-0.2) Sodium Level 131 mmol/L (136-145) Potassium Level 4.2 mmol/L (3.5-5.1) Chloride Level 98 mmol/L (98-107) Carbon Dioxide Level 22 mmol/L (21-32) Anion Gap 11 (6-14) Blood Urea Nitrogen 24 mg/dL (7-20) Creatinine 2.2 mg/dL (0.6-1.0) Estimated GFR (Cockcroft-Gault) 27.5 BUN/Creatinine Ratio 11 (6-20) Glucose Level 126 mg/dL (70-99) Lactic Acid Level 3.9 mmol/L (0.4-2.0) 1.8 mmol/L (0.4-2.0) Calcium Level 8.1 mg/dL (8.5-10.1) Magnesium Level 1.8 mg/dL (1.8-2.4) Total Bilirubin 0.2 mg/dL (0.2-1.0) Aspartate Amino Transf (AST/SGOT) 13 U/L (15-37) Alanine Aminotransferase (ALT/SGPT) 23 U/L (14-59) Alkaline Phosphatase 169 U/L (46-116) Troponin I Quantitative < 0.017 ng/mL (0.000-0.055) < 0.017 ng/mL (0.000-0.055) XD-Wqd-P-Type Natriuretic Peptide 9014 pg/mL (0-124) Total Protein 8.2 g/dL (6.4-8.2) Albumin 3.0 g/dL (3.4-5.0) Albumin/Globulin Ratio 0.6 (1.0-1.7) Lipase 144 U/L (73-393) Ethyl Alcohol Level 110 mg/dL (0-10) Test 12/30/20 21:10 12/30/20 22:42 12/31/20 07:40 Urine Collection Type Void Urine Color Yellow Urine Clarity Clear Urine pH 5.5 (<5.0-8.0) Urine Specific [place] 1.010 (1.000-1.030) Urine Protein Negative mg/dL (NEG-TRACE) Urine Glucose (UA) Negative mg/dL (NEG) Urine Ketones (Stick) Negative mg/dL (NEG) Urine Blood Negative (NEG) Urine Nitrite Negative (NEG) Urine Bilirubin Negative (NEG) Urine Urobilinogen Dipstick 0.2 mg/dL (0.2 mg/dL) Urine Leukocyte Esterase Trace (NEG) Urine RBC 0 /HPF (0-2) Urine WBC Occ /HPF (0-4) Urine Squamous Epithelial Cells Many /LPF Urine Bacteria Many /HPF (0-FEW) Urine Opiates Screen Pos (NEG) Urine Methadone Screen Neg (NEG) Urine Barbiturates Neg (NEG) Urine Phencyclidine Screen Neg (NEG) Urine Amphetamine/Methamphetamine Neg (NEG) Urine Benzodiazepines Screen Neg (NEG) Urine Cocaine Screen Neg (NEG) Urine Cannabinoids Screen Neg (NEG) Urine Ethyl Alcohol Pos (NEG) Troponin I Quantitative < 0.017 ng/mL (0.000-0.055) White Blood Count 5.3 x10^3/uL (4.0-11.0) Red Blood Count 3.20 x10^6/uL (3.50-5.40) Hemoglobin 9.0 g/dL (12.0-15.5) Hematocrit 28.5 % (36.0-47.0) Mean Corpuscular Volume 89 fL (79-100) Mean Corpuscular Hemoglobin 28 pg (25-35) Mean Corpuscular Hemoglobin Concent 32 g/dL (31-37) Red Cell Distribution Width 18.3 % (11.5-14.5) Platelet Count 311 x10^3/uL (140-400) Neutrophils (%) (Auto) 92 % (31-73) Lymphocytes (%) (Auto) 6 % (24-48) Monocytes (%) (Auto) 2 % (0-9) Eosinophils (%) (Auto) 0 % (0-3) Basophils (%) (Auto) 0 % (0-3) Neutrophils # (Auto) 4.8 x10^3/uL (1.8-7.7) Lymphocytes # (Auto) 0.3 x10^3/uL (1.0-4.8) Monocytes # (Auto) 0.1 x10^3/uL (0.0-1.1) Eosinophils # (Auto) 0.0 x10^3/uL (0.0-0.7) Basophils # (Auto) 0.0 x10^3/uL (0.0-0.2) Sodium Level 135 mmol/L (136-145) Potassium Level 5.9 mmol/L (3.5-5.1) Chloride Level 101 mmol/L (98-107) Carbon Dioxide Level 25 mmol/L (21-32) Anion Gap 9 (6-14) Blood Urea Nitrogen 21 mg/dL (7-20) Creatinine 1.5 mg/dL (0.6-1.0) Estimated GFR (Cockcroft-Gault) 42.9 Glucose Level 150 mg/dL (70-99) Calcium Level 8.3 mg/dL (8.5-10.1) Phosphorus Level 4.4 mg/dL (2.6-4.7) Magnesium Level 1.7 mg/dL (1.8-2.4) Assessment and Plan Assessmemt and Plan Problems Medical Problems: (1) Acute exacerbation of CHF (congestive heart failure) Status: Acute (2) Acute on chronic renal insufficiency Status: Acute (3) Alcohol intoxication Status: Acute (4) COPD with exacerbation Status: Acute (5) Lactic acidosis Status: Acute (6) Respiratory failure Status: Acute (7) Suspected 2019 novel coronavirus infection Status: Acute (8) Syncope and collapse Status: Acute Comment Review of Relevant I have reviewed the following items matteo (where applicable) has been applied. Medications: Current Medications Medications (Trade) Dose Ordered Sig/Carlos Alberto Route PRN Reason Start Time Stop Time Status Last Admin Dose Admin Methylprednisolone Sodium Succinate (SOLU-Medrol 125MG VIAL) 125 mg 1X ONCE IV 12/30/20 16:30 12/30/20 16:31 DC 12/30/20 16:52 Albuterol/ Ipratropium (Duoneb) 3 ml 1X ONCE NEB 12/30/20 16:30 12/30/20 16:31 DC 12/30/20 16:40 Bumetanide (Bumex) 1 mg 1X ONCE IV 12/30/20 18:45 12/30/20 18:48 DC 12/30/20 19:24 Methylprednisolone Sodium Succinate (SOLU-Medrol 40MG VIAL) 40 mg Q8HRS IV 12/30/20 22:00 12/31/20 05:24 Heparin Sodium (Porcine) (Heparin Sodium) 5,000 unit Q12HR SQ 12/30/20 21:00 12/31/20 08:07 Morphine Sulfate (Morphine Sulfate) 1 mg PRN Q1HR PRN IV PAIN 12/30/20 20:45 12/31/20 08:06 Oxycodone/ Acetaminophen (Percocet 10/325) 1 tab PRN Q6HRS PRN PO MODERATE TO SEVERE PAIN 12/31/20 07:15 12/31/20 08:59 Metoprolol Tartrate (Lopressor) 25 mg BID PO 12/31/20 09:00 12/31/20 08:59 Justifications for Admission Syncope Indications Is patient dehydrated?: Yes Justification for admission: There is concern that patient may be severely dehydrated accounting for the syncope. Patient needs inpatient level of care for further evaluation and management. Other Justification RAJI RUIZ MD Dec 31, 2020 10:39
[2020-12-31] MEDS ORDERED: FURO-69 PO (10:42)
[2020-12-31 10:52] LABS: CHOLESTEROL/HDL RATIO 1.7
[2020-12-31 11:00] VITALS: BP 134/78
[2020-12-31 11:46] VITALS: BP 136/78
[2020-12-31] MEDS: IPRATRPIUM/ALBUTEROL 0.5/2.5MG 3 ML NEBU. NEB SCH ×2 (12:11→16:07)
--- NOTE | 2020-12-31 15:28 | CARD ---
MR#: [id number] Date of Study: 12/31/2020 Ordering Physician: MIKE LYNCH, Referring Physician: MIKE LYNCH, Tech: Mel Posey [facility] APPROVED REPORT EXAM: Two-dimensional and M-mode echocardiogram with Doppler and color Doppler. Other Information Quality : Good Technically limited study due to body habitus. INDICATION Syncope 2D DIMENSIONS RVDd3.2 (2.9-3.5cm)Left Atrium(2D)3.7 (1.6-4.0cm) IVSd1.0 (0.7-1.1cm)Aortic Root(2D)3.1 (2.0-3.7cm) LVDd4.8 (3.9-5.9cm)LVOT Diameter2.0 (1.8-2.4cm) PWd1.0 (0.7-1.1cm)LVDs3.1 (2.5-4.0cm) FS (%) 35.4 %SV68.2 ml LVEF(%)64.7 (>50%) Aortic Valve AoV Peak Landen.125.3cm/sAoV VTI23.8cm AO Peak GR.6.3mmHgLVOT VTI 17.73cm AO Mean GR.4mmHgAVA (VTI)2.40cm2 Mitral Valve MV E Qxjffktz543.7cm/sMV DECEL NGTE456nc MV A Ulsuzzug00.6cm/sE/A Ratio1.1 TDI Lateral E' P. V7.08cm/sMedial E' P. V8.04cm/s E/Lateral E'15.1E/Medial E'13.3 Tricuspid Valve TR P. Nqmssytq472vg/sRAP HIDBNDRC90zqLa TR Peak Gr.07srFmLTCY66lfZz Pulmonary Vein S1 Wupkkfjp95.2cm/sS2 Vedmxhvn77.89cm/s D2 Bdskgjvn94.9cm/s LEFT VENTRICLE The left ventricle is normal size. There is normal left ventricular wall thickness. The left ventricu lar systolic function is normal and the ejection fraction is within normal range. The Ejection Fracti on is 55-60%. There is normal LV segmental wall motion. Transmitral Doppler flow pattern is Grade II- pseudonormal filling dynamics. RIGHT VENTRICLE The right ventricle is mildly to moderately dilated. The right ventricular systolic function is lexie l. ATRIA The left atrium size is normal. The right atrium is moderately dilated. The interatrial septum is int act with no evidence for an atrial septal defect or patent foramen ovale as noted on 2-D or Doppler i maging. AORTIC VALVE The aortic valve is mildly thickened but opens well. Doppler and Color Flow revealed no significant a ortic regurgitation. There is no significant aortic valvular stenosis. MITRAL VALVE The mitral valve is calcified but opens well. Mitral annular calcification is mild. There is no evide nce of mitral valve prolapse. There is no mitral valve stenosis. Doppler and Color-flow revealed trac e to mild mitral regurgitation. TRICUSPID VALVE The tricuspid valve is normal in structure and function. Doppler and Color Flow revealed trace to mil d tricuspid regurgitation. The PA pressure was estimated at 50 mmHg. There is no tricuspid valve sten osis. PULMONIC VALVE The pulmonic valve is not well visualized. Doppler and Color Flow revealed mild pulmonic valvular reg urgitation. There is no pulmonic valvular stenosis. GREAT VESSELS The aortic root is normal in size. The ascending aorta is mild dilated at 3.5 cm. The IVC is dilated and collapses <50% with inspiration. PERICARDIAL EFFUSION There is no evidence of significant pericardial effusion. Critical Notification Critical Value: No <Conclusion> The left ventricular systolic function is normal and the ejection fraction is within normal range. Th e Ejection Fraction is 55-60%. There is normal LV segmental wall motion. The right ventricle is mildly to moderately dilated. Doppler and Color Flow revealed trace to mild tricuspid regurgitation. The PA pressure was estimated at 50 mmHg. The ascending aorta is mild dilated at 3.5 cm. Signed by : Saroj Lindo, Electronically Approved : 12/31/2020 15:28:12
--- NOTE | 2020-12-31 15:31 | NUR ---
SS following for discharge planning. SS reviewed pt chart and discussed with pt RN. Pt is from home and is currently requiring oxygen at four liters nasal canula. Pt has home oxygen. COVID19 test pending. Per RN, pt has had both COVID19 vaccines. Cardiology consulted. ECHO ordered. Probable discharge to home when medically ready. SS will continue to follow for discharge planning.
[2020-12-31] MEDS ORDERED: DOCU-153 PO (15:39)
[2020-12-31] MEDS ORDERED: SENN-87 PO (15:39)
--- NOTE | 2020-12-31 15:40 | DISCH ---
DISCHARGE INSTRUCTIONS Condition on Discharge Condition on Discharge: Stable Activity After Discharge Activity Instructions for Disc: Activity as tolerated Driving Instructions after Dis: Do not drive today Weight Bearing Status after Di: As tolerated Diet after Discharge Diet after Discharge: Diabetic No Calorie Level Diet Texture: Regular Liquid Texture: Thin Liquid Swallowing Supervision: None needed Checks after Discharge Checks after discharge: Check blood press - daily, Check blood sugar, ac/hs, Check your Temp as needed Contacting the DR. after DC Call your doctor for: If your condition worsens Follow-Up Follow up with: PCP within 2 weeks of discharge Follow Up With: Cardiology as needed RAJI RUIZ MD Dec 31, 2020 15:40
--- NOTE | 2020-12-31 16:03 | NUR ---
Discharge instructions given to patient.l all Questions answered . Aditi daughter will be here to pick her up at 1615. Pt requested breathing treatment before she is discharged.
--- NOTE | 2020-12-31 17:02 | NUR ---
Pts ride arrived and pt taken to the main entrance and placed in car.
--- NOTE | 2021-01-01 10:31 | NUR ---
IP: Informed pt of negative COVID test. Pt verbalized understanding.
--- NOTE | 2021-01-01 21:26 | PDOC3 ---
[facility]-Discharge Summary Date of Admission: Date of Admission: Dec 30, 2020 Date of Discharge: Date of Discharge: Dec 31, 2020 Discharge Diagnosis: Discharge Diagnosis: Acute hypoxic respiratory failure Acute CHF exacerbation Acute COPD exacerbation Acute volume overload Acute on chronic kidney injury due to vasomotor nephropathy Mixed respiratory and metabolic acidosis Lactic acidosis Elevated alkaline phosphatase Moderate protein malnutrition Hospital Course: Hospital Course: By day of discharge, patient was clinically stable. Seen and evaluated by cardiology. Echo was completed and was WNL. Smoking cessation encouraged. Rest of hospital course was uneventful. 12/31/20 No acute events overnights. Pending TTE. Improved with steroids and lasix. Patient's chart, labs, images were reviewed and discussed with RN 60 year old female who was brought here by EMS from a local establishment after several episodes of syncope. EMS says she was walking from her car at the parking lot to go into for [employer] when she passed out. She refused to seek help but she started having shortness of air. EMS was then called, when they got there patient stood up to walk to the EMS car then she passed out again. EMS said they caught her before she found out. Her oxygen saturation was in the 60%. She was wheezing normally. Patient was given oxygen. Patient has history of COPD, she is on 2 L oxygen as needed. Patient continues to smoke. Patient says she was at a bar today, had about 5 mixed drinks. She became hungry so she was going into for [employer] to have a dinner. Patient denies any chest pain, no abdominal pain, no nausea vomiting. Patient denies fever, but does has nonproductive cough,. Patient denies any back pain or extremity pain. Upon arrival to the ER patient was in respiratory distress, she was wheezing, speaking a few words sentences, tachypneic. Patient denies any history of COVID-19 infection, she has been tested multiple times for Covid "all came back negative. Patient does not want to have Covid vaccine. Disposition: Disposition/Orders: D/C to Home Activity: Activity: Resume previous activity Diet: Diet: Cardiac Medications: Home Meds Active Scripts Sennosides (SENNA LAX) 8.6 Mg Tablet, 17.2 MG PO PRN BID PRN for CONSTIPATION for 30 Days, #60 TAB Prov:RAJI RUIZ MD 12/31/20 Docusate Sodium (DOK) 100 Mg Capsule, 100 MG PO PRN DAILY PRN for HARD STOOLS for 30 Days, #30 CAP Prov:RAJI RUIZ MD 12/31/20 Oxycodone/Apap 10-325 (PERCOCET 10-325 MG TABLET ) 1 Each Tablet, 1 TAB PO PRN Q6HRS PRN for PAIN, #30 TAB 0 Refills Prov:JIM MCDONALD MD 10/02/18 Reported Medications Furosemide (LASIX) 20 Mg Tablet, 1 TAB PO DAILY for water pill for 30 Days, #30 TAB 0 Refills 12/31/20 Zolpidem Tartrate (ZOLPIDEM TARTRATE) 10 Mg Tablet, 1 TAB PO QHS for insomnia, #30 TAB 2 Refills 10/02/18 Thiamine Mononitrate (VITAMIN B-1) 100 Mg Tablet, 100 MG PO DAILY for vitamins, TAB 10/02/18 Tiotropium Br/Olodaterol HCl (Stiolto Respimat Inhal [place]) 4 Gm Mist.inhal, 2.5 MCG IH DAILY for lungs, SPRAY 10/02/18 Albuterol Sulfate (PROAIR HFA INHALER) 8.5 Gm Hfa.aer.ad, 2 PUFF INH PRN Q6HRS PRN for SHORTNESS OF BREATH, INHALER 0 Refills 10/02/18 Pantoprazole Sodium (PROTONIX) 20 Mg Tablet.dr, 40 MG PO DAILY for stomach, TAB 10/02/18 Omeprazole (OMEPRAZOLE) 40 Mg Capsule.dr, 1 CAP PO DAILY for gerd, #30 CAP 3 Refills 10/02/18 Nicotine Polacrilex (NICORETTE) 2 Mg Gum, 2 MG BC Q1HR PRN for SMOKING CESSATION, EACH 10/02/18 Nicotine (NICODERM CQ 21mg) 1 Each Patch.td24, 1 PATCH TP DAILY for smoking cessation, #28 PATCH 1 Refill 10/02/18 [lidoderm] No Conflict Check, 5 % TOP DAILY for left back pain 10/02/18 Gabapentin (GABAPENTIN ) 300 Mg Capsule, 300 MG PO TID for NEUROGENIC PAIN, CAP 10/02/18 Folic Acid (FOLIC ACID) 1 Mg Tablet, 1 TAB PO DAILY for folvite, #90 TAB 1 Refill 10/02/18 Fluticasone Propionate (FLUTICASONE PROPIONATE NASAL SPRAY) 16 Gm [place].susp, 2 SPRAY NS DAILY for allergies, #1 INHALER 11 Refills 10/02/18 Fluoxetine Hcl (FLUOXETINE HCL) 20 Mg Capsule, 1 CAP PO DAILY for depression/anxiety, #90 CAP 1 Refill 10/02/18 Ferrous Sulfate (FERROUS SULFATE) 325 Mg Tablet, 1 TAB PO BID for anemia, #60 TAB 3 Refills 10/02/18 Estrogens, Conjugated (PREMARIN) 0.625 Mg Tablet, 1 TAB PO DAILY for hormone replacement, #30 TAB 11 Refills 10/02/18 Aspirin (ASPIRIN) 81 Mg Tab.chew, 1 TAB PO DAILY for healthy heart, #30 TAB 3 Refills 10/02/18 Discontinued Reported Medications Sennosides (SENEXON) 8.6 Mg Tablet, 8.6 MG PO DAILY PRN for CONSTIPATION, TAB 10/02/18 Lipase/Protease/Amylase (CREON DR 6,000 UNITS CAPSULE) 1 Each Capsule.dr, 2 EACH PO TIDWMEALS for pancreas, CAP 10/02/18 Metoprolol Tartrate (METOPROLOL TARTRATE) 25 Mg Tablet, 1 TAB PO BID for blood pressure, #180 TAB 1 Refill 10/02/18 Scheduled Aspirin (Aspirin), 1 TAB PO DAILY, (Reported) Estrogens, Conjugated (Premarin), 1 TAB PO DAILY, (Reported) Ferrous Sulfate (Ferrous Sulfate), 1 TAB PO BID, (Reported) Fluoxetine Hcl (Fluoxetine Hcl), 1 CAP PO DAILY, (Reported) Fluticasone Propionate (Fluticasone Propionate Nasal [place]), 2 SPRAY NS DAILY, (Reported) Folic Acid (Folic Acid), 1 TAB PO DAILY, (Reported) Furosemide (Lasix), 1 TAB PO DAILY, (Reported) Gabapentin (Gabapentin ), 300 MG PO TID, (Reported) Nicotine (NICODERM CQ 21mg), 1 PATCH TP DAILY, (Reported) Omeprazole (Omeprazole), 1 CAP PO DAILY, (Reported) Pantoprazole Sodium (Protonix), 40 MG PO DAILY, (Reported) Thiamine Mononitrate (Vitamin B-1), 100 MG PO DAILY, (Reported) Tiotropium Br/Olodaterol HCl (Stiolto Respimat Inhal [place]), 2.5 MCG IH DAILY, (Reported) Zolpidem Tartrate (Zolpidem Tartrate), 1 TAB PO QHS, (Reported) [lidoderm], 5 % TOP DAILY, (Reported) Scheduled PRN Albuterol Sulfate (Proair Hfa Inhaler), 2 PUFF INH PRN Q6HRS PRN for SHORTNESS OF BREATH, (Reported) Docusate Sodium (Dok), 100 MG PO PRN DAILY PRN for HARD STOOLS Nicotine Polacrilex (Nicorette), 2 MG BC Q1HR PRN for SMOKING CESSATION, (Reported) Oxycodone/Apap 10-325 (Percocet 10-325 Mg Tablet ), 1 TAB PO PRN Q6HRS PRN for PAIN Sennosides (Senna Lax), 17.2 MG PO PRN BID PRN for CONSTIPATION Discontinued Medications Lipase/Protease/Amylase (Creon Dr 6,000 Units Capsule), 2 EACH PO TIDWMEALS, (Reported) Metoprolol Tartrate (Metoprolol Tartrate), 1 TAB PO BID, (Reported) Sennosides (Senexon), 8.6 MG PO DAILY PRN for CONSTIPATION, (Reported) Total Time: Total Time: Total time spent was 50 minutes in preparing scripts, discharge planning with SW and RN, and preparing this discharge summary. Patient seen and examined on day of discharge. Justicifation of Admission Dx: Justifications for Admission: Justification of Admission Dx: Yes Respiratory Failure: Severe Resp Distress RAJI RUIZ MD Jan 01, 2021 21:26
== END 2020-12-31 17:03 | disposition home or self-care (01) | DRG 291 ==
LOC: ER 16:23 → ED HOLD 21:32 → 1 WEST ICU 23:02
PROVIDERS: ADMIT Internal Medicine; ATTEND Internal Medicine
DX: I13.0 Hypertensive heart and chronic kidney disease with heart failure and stage 1 through stage 4 chronic kidney disease, or unspecified chronic kidney disease (principal); N17.0 Acute kidney failure with tubular necrosis; J96.01 Acute respiratory failure with hypoxia; I50.33 Acute on chronic diastolic (congestive) heart failure; J96.21 Acute and chronic respiratory failure with hypoxia; J44.1 Chronic obstructive pulmonary disease with (acute) exacerbation; E87.4 Mixed disorder of acid-base balance; E44.0 Moderate protein-calorie malnutrition; C34.11 Malignant neoplasm of upper lobe, right bronchus or lung; G93.40 Encephalopathy, unspecified; K86.1 Other chronic pancreatitis; N18.9 Chronic kidney disease, unspecified; R74.8 Abnormal levels of other serum enzymes; Z20.822 Contact with and (suspected) exposure to COVID-19; E87.5 Hyperkalemia; F10.220 Alcohol dependence with intoxication, uncomplicated; F12.90 Cannabis use, unspecified, uncomplicated; F17.210 Nicotine dependence, cigarettes, uncomplicated; I25.10 Atherosclerotic heart disease of native coronary artery without angina pectoris; N18.30 Chronic kidney disease, stage 3 unspecified; Z85.118 Personal history of other malignant neoplasm of bronchus and lung; Z86.718 Personal history of other venous thrombosis and embolism; Z92.3 Personal history of irradiation; Z95.1 Presence of aortocoronary bypass graft; F32.9 Major depressive disorder, single episode, unspecified; F41.9 Anxiety disorder, unspecified; Z90.49 Acquired absence of other specified parts of digestive tract; Z71.6 Tobacco abuse counseling
CPT/HCPCS: 36415; 36600; 70450; 71045; 71250; 80048; 80053; 80061; 80307; 81001; 82805; 83605; 83690; 83735; 83880; 84100; 84443; 84484; 85025; 87040; 87086; 93005; 93306; 94640; 94760; 96374; 96375; G0480; J1644; J2270; J2920; J2930; J3490; U0003; U0005; 99291-25; G0378

== ENCOUNTER 2021-01-23 00:06 | Emergency (ER) | payer OTHER ==
[~2021-01-23] VITALS: Ht 165.1 cm; Wt 85.0 kg
[~2021-01-23 00:06] MED LIST changes: +DOCU-153 PO; +FURO-69 PO; +SENN-87 PO
--- NOTE | 2021-01-23 01:41 | PHYS DOC ---
Past Medical History Past Medical History: Cancer, COPD, Hypertension, Other Additional Past Medical Histor: BLOOD TRANSFUSION Past Surgical History: Cholecystectomy, Other Additional Past Surgical Histo: HEMORRHOID,R ANKLE ORIF,REMOVAL HARDWARE Smoking Status: Current Every Day Smoker Alcohol Use: Heavy Drug Use: Marijuana General Adult EDM: Chief Complaint: HYPERTENSION HPI: HPI: Patient is a 60 year old female who presents to the emergency department due to a COPD exacerbation. Patient states that the past few days she has had having more dyspnea on exertion and coughing up more phlegm than usual. Patient has normally on 2 L of oxygen at home but she still felt short of breath. EMS gave her a breathing treatment in route which helped her significantly and she was able to to go to 3 L of oxygen from the original 4 L. Patient states that she has pain bilaterally lower ribs when she takes a deep breath. Patient is used her albuterol inhaler with some relief but still not back to baseline. Patient complains of shortness of breath, wheezing, lightheadedness, and weakness. Review of Systems: Review of Systems: Review of systems: Constitutional symptoms- No fever, no chills. Eyes- No Discharge, No Visual Loss Respiratory symptoms-positive shortness of breath, positive wheezing, positive dyspnea on Exertion Cardiovascular Systems; positive chest pain, No Palpitations, No syncope Gastrointestinal symptoms: NO abdominal pain, no nausea, no vomiting or diarrhea. Genitourinary symptoms: No dysuria. Musculoskeletal symptoms: No back pain No extremity pain. NEUROLOGICAL Symptoms: No headache, positive generalized weakness; No focal Weakness Heart Score: C/O Chest Pain: N/A Risk Factors: Risk Factors: DM, Current or recent (<one month) smoker, HTN, HLP, family history of CAD, obesity. Risk Scores: Score 0 - 3: 2.5% MACE over next 6 weeks - Discharge Home Score 4 - 6: 20.3% MACE over next 6 weeks - Admit for Clinical Observation Score 7 - 10: 72.7% MACE over next 6 weeks - Early Invasive Strategies Allergies: Allergies: Allergies Coded Allergies Type Severity Reaction Last Updated Verified Anesthetics - Amide Type - Select A Allergy Severe 12/30/20 Yes Anesthetics - [place] Type- Parabens Allergy Severe 12/30/20 Yes doxycycline Allergy Intermediate 12/30/20 Yes Physical Exam: PE: General: alert, no acute distress. Skin: warm, dry and intact. Head:: Normocephalic, atraumatic. Neck: Trachea midline. Eyes: EOMI, Normal conjunctiva, No drainage CARDIOVASCULAR: Regular rate and rhythm RESPIRATORY: No respiratory distress, bilateral expiratory wheezing, cough Back: Full range of motion. MUSCULOSKELETAL: Full range of motion of bilateral upper and lower extremities. GASTROINTESTINAL: Abdomen soft without rebound or guarding. NEUROLOGICAL: Alert and noted to person, place and time. No neurological deficits observed Psychiatric: Cooperative. Normal judgment Current Patient Data: Vital Signs: Vital Signs Date Time Temp Pulse Resp B/P (MAP) Pulse Ox O2 Delivery O2 Flow Rate FiO2 01/23/21 00:15 98.3 80 22 152/85 (107) 90 Room Air 98.3 EKG: EKG: EKG performed at 003 0 hours heart rate [address] elevation no ST depression no acute [place] [] Radiology/Procedures: Radiology/Procedures: [] Impression: Findings: Redemonstrated prominence of the cardiomediastinal silhouette. Unchanged keely. Generalized increased interstitial markings similar to the prior. Slightly more noticeable blunting of the left costophrenic angle. No pneumothorax. Impression: Suspected interstitial edema and a trace left pleural effusion in the setting of cardiac enlargement. Similar findings were also seen on the 12/30/2020 comparison. Course & Med Decision Making: Course & Med Decision Making Pertinent Labs and Imaging studies reviewed. (See chart for details) [] Dragon Disclaimer: Dragon Disclaimer: This electronic medical record was generated, in whole or in part, using a voice recognition dictation system. Departure Departure Impression: Primary Impression: COPD exacerbation Disposition: HOME / SELF CARE / HOMELESS Condition: STABLE Referrals: CORRINA WOOD MD (PCP) Patient Instructions: Chronic Obstructive Pulmonary Disease Exacerbation Scripts Hydrocodone/Acetaminophen (Hydrocodone-Acetamin 5-325 mg) 1 Each Tablet 1 EACH PO Q4-6HRS, #20 TAB Prov: LM SOTO DO 01/23/21 Prednisone (PREDNISONE) 20 Mg Tablet 1 TAB PO UD for 12 Days, #15 TAB Take 2 tabs days 1,2,3 1.5 tabs days 3,4,5 1 tab days 6,7,8 0.5 tab days 9,10,11 Prov: LM SOTO DO 01/23/21 LM SOTO DO Jan 23, 2021 01:41
--- NOTE | 2021-01-23 01:44 | EKG ---
[facility] [address] [place] [address] Test Date: 2021-01-23 Test Time: 00:30:07 Pat Name: JUSTYN PATEL Department: Room: Gender: F Test [employer] Chief: : [id number] Requested By: LM SOTO Order Number: [id number] Reading MD: Measurements Intervals [place] Rate: 76 P: 51 W[place]: 162 QRS: 45 QRSD: 82 T: 73 QT: 408 QTc: 464 Interpretive Statements SINUS RHYTHM T ABNORMALITY IN HIGH LATERAL LEADS ABNORMAL ECG RI6.02 No previous ECG available for comparison
[2021-01-23] MEDS ORDERED: KETOROLAC 15 MG/ML VIAL. IVP ONE (01:45)
[2021-01-23] MEDS ORDERED: methylPREDNISolone SOD SUCC PF 125 MG/2 ML VIAL. IV ONE (01:45)
[2021-01-23 02:00] LABS: BASO % 0 % (0-3); EOS # 0.1 x10^3/uL (0.0-0.7); EOS % 2 % (0-3); HEMATOCRIT 29.1 % (36.0-47.0); HEMOGLOBIN 9.2 g/dL (12.0-15.5); LYMPH # 0.7 x10^3/uL (1.0-4.8); LYMPH % 13 % (24-48); MEAN CORPUSCULAR HEMOGLOBIN 28 pg (25-35); MEAN CORPUSCULAR HGB CONC 32 g/dL (31-37); MEAN CORPUSCULAR VOLUME 87 fL (79-100); MONO # 0.4 x10^3/uL (0.0-1.1); MONO % 7 % (0-9); NEUT # 4.4 x10^3/uL (1.8-7.7); NEUT % 77 % (31-73); PLATELET COUNT 317 x10^3/uL (140-400); RED BLOOD COUNT 3.33 x10^6/uL (3.50-5.40); RED CELL DISTRIBUTION WIDTH 19.5 % (11.5-14.5); WHITE BLOOD COUNT 5.7 x10^3/uL (4.0-11.0)
[2021-01-23 02:11] LABS: CALCIUM 8.7 mg/dL (8.5-10.1); CREATININE 1.4 mg/dL (0.6-1.0); GFR 46.4; POTASSIUM 5.1 mmol/L (3.5-5.1)
[2021-01-23 02:17] LABS: ALBUMIN 3.1 g/dL (3.4-5.0); ALBUMIN/GLOBULIN RATIO 0.6 (1.0-1.7); TOTAL BILIRUBIN 0.2 mg/dL (0.2-1.0); TOTAL PROTEIN 8.5 g/dL (6.4-8.2)
[2021-01-23] MEDS ORDERED: HYDROcodone/APAP 5/325MG 1 TAB TABLET PO ONE (02:45)
--- NOTE | 2021-01-23 02:55 | RAD ---
Study: XR CHEST 1V Indication: COPD exacerbation. Comparison: 12/30/2020 Findings: Redemonstrated prominence of the cardiomediastinal silhouette. Unchanged keely. Generalized increased interstitial markings similar to the prior. Slightly more noticeable blunting of the left costophreni c angle. No pneumothorax. Impression: Suspected interstitial edema and a trace left pleural effusion in the setting of cardiac enlargement. Similar findings were also seen on the 12/30/2020 comparison. Electronically signed by: TRINITY VASQEUZ MD (01/23/2021 2:53 AM) [facility]
[2021-01-23 03:14] VITALS: BP 149/78
[2021-01-23] MEDS ORDERED: PRED20TA PO (03:39)
[2021-01-23] MEDS ORDERED: HYDR-2759 PO (03:41)
== END 2021-01-23 03:55 | disposition home or self-care (01) ==
LOC: ER 00:06
DX: J44.1 Chronic obstructive pulmonary disease with (acute) exacerbation (principal); I10 Essential (primary) hypertension; F17.200 Nicotine dependence, unspecified, uncomplicated; F10.20 Alcohol dependence, uncomplicated; Y90.9 Presence of alcohol in blood, level not specified; Z88.1 Allergy status to other antibiotic agents; Z88.4 Allergy status to anesthetic agent
CPT/HCPCS: 36415; 71045; 80053; 84484; 85025; 93005; 96374; 96375; 99285; J1885; J2930